=== PATIENT | male | born 1930 | race Caucasian/White ===

== ENCOUNTER → 2017-03-30 | Outpatient (CLI) | payer MEDICARE, BC ==
[~2017-03-30] VITALS: Ht 172.7 cm; Wt 77.3 kg
[~2017-03-30] MED LIST: ACET-2723 PO; ACET-2930 PO; ASPI-557 PO; CALC-135 PO; CILO50TA PO; CLOP75TA PO; CYCL5TAB PO; DONE10TA30 PO; FA/M1TAB32 PO; FEXO-118 PO; FINA5TAB42 PO; FURO-154 PO; GLIM2TAB3 PO; GLIM4TAB3 PO; HYDR-347 PO; HYDR-3713 PO; METF10002 PO; METO50TA5 PO; NITR0.4T SL; POTA20TA10 PO; REGADENOSON 0.4mg/5ml INJECTION IV ONE; SALINE FLUSH 10ml SYRINGE ONE; SIMV40TA5 PO; TAMS0.4C47 PO; [UNRECOGNIZED DRUG - OTHER] PO; elderberry PO; iron glycinate PO
--- NOTE | 2017-03-30 20:56 | ADENOSINEF ---
PHARMACOLOGICAL STRESS NUCLEAR SCAN DATE OF PROCEDURE 03/30/2017 INDICATIONS Occasional angina pectoris. Patient had a drug-eluting stent to a vein graft this past September 2016 followed by TAVR. He is being considered for back surgery. He also has diabetes mellitus and cardiovascular disease including carotid artery stenosis. NARRATIVE OF PROCEDURE The patient was unable to exercise on the treadmill due to chronic low back pain. The patient underwent rest injecting of 99mTc Myoview dose of 12.6 mCi, a Lexiscan dose of 0.4 mg followed by a 99mTc Myoview dose of 32.1 mCi. Stress and rest perfusion images were obtained per protocol. The patient had no chest pain. He had mild nausea and headache with stress. EKG showed sinus rhythm with ventricular-paced rhythm 100%. The EKG was nondiagnostic during the pharmacological stress due to paced rhythm. Blood pressure was 140/67, heart rate 61 beats per minute. Blood pressure svetlana to 156/76, heart rate svetlana to 86 beats per minute which is 63% of age-predicted maximum heart rate. Stress and rest perfusion images were reviewed. A medium-size perfusion defect was identified in the inferolateral wall and a mild area in the mid inferior wall. These appeared to redistribute on rest images suggestive of moderate and mild reversible ischemia in order. In addition, residual fixed defect in the inferior wall is consistent with either diaphragmatic attenuation artifact or a small nontransmural scar. Gated images showed normal wall motion, normal contractility, LVEF 49% on stress images and 60% on rest images. IMPRESSION 1. Pharmacological stress nuclear scan clinically negative. 2. Electrically nondiagnostic due to paced rhythm. 3. Scintigraphically suggestive of moderate reversible ischemia in the inferolateral wall and mild reversible ischemia in the inferior wall with normal LVEF, as described above. RAFAT
== END ==
LOC: IMA 08:03
PROVIDERS: ATTEND Internal Medicine Cardiovascular Disease
DX: R94.39 Abnormal result of other cardiovascular function study (principal); R26.2 Difficulty in walking, not elsewhere classified; I20.0 Unstable angina; R06.02 Shortness of breath; M54.5 Low back pain; R11.0 Nausea; R51 Headache
CPT/HCPCS: 78452; 93017; A9502; J2785

== ENCOUNTER 2017-04-05 06:57 | Outpatient (CLI) | payer MEDICARE, BC ==
[2017-04-05] VITALS (18 sets, daily range): BP systolic 132–190; BP diastolic 56–91; PULSE 62–74; RESP 11–27; TEMP 98.2; O2SAT 93–100; Ht 172.7 cm; Wt 78.1 kg
[~2017-04-05] VITALS: Ht 172.7 cm; Wt 78.1 kg
[~2017-04-05 06:57] MED LIST changes: -ACET-2723 PO; -ACET-2930 PO; -GLIM2TAB3 PO; -HYDR-347 PO; +NORMAL SALINE 1,000 ML IV SCH; -REGADENOSON 0.4mg/5ml INJECTION IV ONE; +SALINE FLUSH 10ml SYRINGE IVF PRN; -SALINE FLUSH 10ml SYRINGE ONE
--- NOTE | 2017-04-05 07:05 | NUR ---
ADMIT PT AMBULATORY TO ROOM 118. FAMILY ATTENDING.
[2017-04-05] MEDS ORDERED: GLIM2TAB3 PO (07:31)
[2017-04-05] MEDS ORDERED: HYDR-347 PO (07:35)
[2017-04-05] MEDS ORDERED: FEXO-118 PO (07:38)
[2017-04-05] MEDS ORDERED: ACET-2723 PO (07:38)
[2017-04-05] MEDS ORDERED: ACET-2930 PO (07:38)
[2017-04-05 07:41] LABS: BASOPHILS # (AUTO) 0.1 T/MM3 (0-0.2); BASOPHILS % (AUTO) 1.4 % (0-2); EOSINOPHILS # (AUTO) 0.2 T/MM3 (0-0.5); EOSINOPHILS % (AUTO) 6.6 % (0-4); HCT - HEMATOCRIT 32.2 % (41-53); HGB - HEMOGLOBIN 10.3 GM/DL (13.5-17.5); IMMATURE GRANULOCYTE # (AUTO) 0.02 T/MM3 (0.00-0.03); IMMATURE GRANULOCYTE % (AUTO) 0.6 % (0.0-0.5); LYMPHOCYTES # (AUTO) 1.3 T/MM3 (1-4.8); LYMPHOCYTES % (AUTO) 37.9 % (23-45); MEAN CORPUSCULAR HGB 27.8 UUG (26-34); MEAN CORPUSCULAR VOLUME 86.8 UM3 (80-100); MEAN PLATELET VOLUME 9.3 UM3 (9.4-12.4); MONOCYTES # (AUTO) 0.4 T/MM3 (0-0.8); MONOCYTES % (AUTO) 11.8 % (0-9.0); NEUTROPHILS #(AUTO)-ABSOLUTE 1.5 T/MM3 (1.8-7.7); NEUTROPHILS % (AUTO) 41.7 % (33-66); RED BLOOD COUNT 3.71 M/MM3 (4.50-5.90); WBC - WHITE BLOOD COUNT 3.5 T/MM3 (4.5-11.0)
[2017-04-05 07:53] LABS: ANION GAP 13 MEQ/L (5-15); BUN/CREATININE RATIO 20 RATIO (6-26); CALCIUM 9.4 MG/DL (8.4-10.2); CHLORIDE 104 MEQ/L (98-107); CO2 - CARBON DIOXIDE 27 MEQ/L (22-30); GLOMERULAR FILTRATION RATE 71; GLUCOSE 121 MG/DL (75-110); POTASSIUM 4.3 MEQ/L (3.6-5); SODIUM 144 MEQ/L (134-144)
[2017-04-05] MEDS ORDERED: LIDOCAINE 1% (10mg/ml) 30ml SDV ONE (08:43)
[2017-04-05] MEDS ORDERED: HEPARIN 1,000units in NS 500ml BAG IV ONE ×2 (08:43→10:18)
--- NOTE | 2017-04-05 09:18 | NUR ---
CATH PT TO M[employer] LOAN OFFICER ORIGINATOR PER CATH CART. FAMILY ATTENDING.
[2017-04-05] MEDS ORDERED: MIDAZOLAM 2mg/2ml INJECTION ONE (09:25)
[2017-04-05] MEDS ORDERED: DiphenhydrAMINE 50 MG/ML INJECTION ONE (09:25)
[2017-04-05] MEDS ORDERED: FENTANYL 100mcg/2ml INJECTION ONE (09:25)
--- NOTE | 2017-04-05 09:34 | NUR ---
CM CM ATTEMPTED TO VISIT PT. PT AT PROCEDURE. CONTACT CARD AT BEDSIDE WITH NAME ON BOARD. [facility] [place] NURSE AWARE TO CONTACT CM IF NEEDS ARISE.
[2017-04-05] MEDS ORDERED: BISACODYL 10 MG SUPPOSITORY RECTALLY PRN (11:00)
[2017-04-05] MEDS ORDERED: BISACODYL 5 MG E.C. TABLET PO PRN (11:00)
[2017-04-05] MEDS ORDERED: LORAZEPAM 1 MG TABLET PO PRN (11:00)
[2017-04-05] MEDS ORDERED: MAG-AL + SIM LIQUID 30 ML UDC PO PRN (11:00)
[2017-04-05] MEDS ORDERED: MILK OF MAGNESIA 30 ML SUSP PO PRN (11:00)
[2017-04-05] MEDS ORDERED: PROMETHAZINE 25 MG INJECTION IV PRN (11:00)
[2017-04-05] MEDS ORDERED: ATROPINE 1 MG/ML VIAL IV PRN (11:00)
[2017-04-05] MEDS ORDERED: MORPHINE SULFATE 4 MG SYRINGE IV PRN ×2 (11:00)
[2017-04-05] MEDS ORDERED: ACETAMINOPHEN 500 MG TABLET PO PRN (11:00)
[2017-04-05] MEDS ORDERED: HYDROCODONE/APAP 5 mg/325 mg TABLET PO PRN (11:00)
[2017-04-05] MEDS ORDERED: ONDANSETRON 4mg/2ml INJECTION IV PRN (11:00)
[2017-04-05] MEDS ORDERED: NITROGLYCERIN 0.4 MG SUBLINGUAL TABLET SL PRN ×2 (11:00)
[2017-04-05] MEDS ORDERED: ACETAMINOPHEN 325 MG TABLET PO PRN (11:00)
[2017-04-05] MEDS ORDERED: METOCLOPRAMIDE 10mg/2ml INJECTION IV PRN (11:00)
[2017-04-05] MEDS ORDERED: LORAZEPAM 2 MG/ML INJECTION IV PRN (11:00)
--- NOTE | 2017-04-05 11:20 | NUR ---
RETURN PT RETURNED TO ROOM 118 PER CATH CART. TRANSFERRED TO .. BED WITH ASSIST OF 3 USING SLIDE BOARD. LEFT GROIN SITE HAS VENOUS PUNCTURE THAT IS COVERED WITH D&I DRESSING. RT GROIN SITE (MANUAL PRESSURE HELD) COVERED WITH D&I DRESSING. TISSUE SOFT TO PALPATION WITH NO S/SX OF BLEEDING. PEDAL PULSES PALPABLE BI-LAT.
[2017-04-05] MEDS: NORMAL SALINE 1,000 ML IV SCH ×2 (14:59→15:32)
--- NOTE | 2017-04-05 15:10 | HPF ---
DATE OF SERVICE (OFFICE VISIT) 03/25/2017 DATE OF PROCEDURES 04/05/2017 CARDIAC CATHETERIZATION Next week, date yet to be determined. HISTORY OF PRESENT ILLNESS Mr. Flores is a very pleasant 87-year-old male well-known to me with complex past cardiovascular history as noted below. He presents for office visit to make sure he is ready for his anticipated spinal stenosis surgery set up for about June 15. He has extensive coronary artery disease history and he recently took a long bus trip and on two occasions he experienced left-sided chest pressure and shortness of breath. It lasted for less than a minute and on one occasion it happened after handling luggage. He does not remember the specifics about the second episode. He denies any pleuritic type chest pain. He denies leg swelling, orthopnea or PND. He did get off his seat every 2 to 2-1/2 hours to walk. He has no other complaints after that time. He is looking forward to finally having his back surgery due to debilitating low back pain. 10-SYSTEM REVIEW OF SYSTEMS Recent weight gain of five pounds. Denies fever, chills, or night sweats. Denies abdominal pain, hematochezia, melena. Denies nausea or vomiting. No dysuria or hematuria. No urinary frequency. Positive for shortness of breath and in History of Present Illness above and no wheezing or phlegm production. Positive for chronic and worsening low back pain, appears to be mechanical and worse with activity such as walking. Negative for stroke-type symptoms. No neurological deficits. No speech difficulty, visual problems, diplopia, arm or leg weakness, numbness, tingling, trouble walking or gait difficulty. Negative for dizziness, vertigo, syncope, seizure, or headaches. He has known bilateral carotid artery stenoses (see reports below). He denies bleeding problems. He has some easy bruising. He remains on Plavix and aspirin after a previous coronary artery stent. He is diabetic and blood sugars have been fluctuating. He has non-Hodgkin's lymphoma in remission, on maintenance chemotherapy intermittently by Dr. Negro. He also describes improved energy over the past 5-6 months following his cardiac procedures. PAST MEDICAL/SURGICAL HISTORY 1. Coronary artery disease with remote CABG in 2001. Catheterization September 30, 2016. Extensive coronary artery disease but patent PARKINSON to LAD, high grade lesion within the vein graft to the RCA. No bypass to the left circumflex artery, 75% stenosis in the obtuse marginal branch and subsequently received a bare metal stent to the first obtuse marginal branch and vein graft to the RCA, October 07, 2016 2. Drug-eluting stent to SVG to RCA September 2016, Dr. Sourav Ortega. 3. TAVR in October 2016, Dr. Morales. 4. Peripheral arterial disease with known severe bilateral iliac artery stenosis. 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 Morales. 5. Carotid artery stenosis. 6. Permanent pacemaker implant, October 2016 for immediate post TAVR complete heart block. 7. Non-Hodgkin's lymphoma. 8. Hypertension. 9. Dyslipidemia. 10. Diabetes mellitus type 2. HOME MEDICATIONS List was reviewed in EMR in detail. ALLERGIES IODINE, unknown reaction. NIACIN. CEPHALOSPORIN . PENICILLIN. FAMILY HISTORY Positive for heart disease in his brother. SOCIAL HISTORY Denies alcohol. He is a former smoker. 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 He is a . PHYSICAL EXAMINATION GENERAL: Alert and oriented x3, most pleasant gentleman, elderly. Looks age-appropriate. Does not look in any acute cardiorespiratory distress. VITALS: Blood pressure 130/72. Pulse rate 65 beats per minute. Respirations 16 and unlabored. Weight is 175 pounds. HEAD: Atraumatic, normocephalic. NECK: Jugular venous pressure is not elevated. Carotid upstrokes are equal. Soft left-sided bruit is present. CHEST: Clear to auscultation bilaterally. HEART: Regular rate and rhythm with a Grade I/ systolic ejection murmur. No aortic regurgitation murmur is present. Normal S1 and S2. Pacemaker scar is well healed and normal. It is right-sided. Left-sided scar appears normal. It is related to subclavian artery surgical cut-down for TAVR procedure. ABDOMEN: Soft, nontender, nondistended. Normoactive bowel sounds are present. No organomegaly or masses. EXTREMITIES: Peripheral pulses are decreased but symmetrical. Toes are pink and warm. SKIN: Warm, pink and dry. NEUROLOGIC: Without any focal sensory or motor deficit appreciated. DIAGNOSTIC DATA EKG obtained today shows sinus rhythm. No acute changes of ischemia. Echocardiogram from October 2016 showed critical aortic valve stenosis, 0.6 cm2 with a mean gradient of 54 mmHg (pre-TAVR). Moderate LVH with normal ejection fraction of 70%. Post-TAVR echo November 13, 2016, Dr. Morales, bioprosthetic valve well-functioning and seated well with trace perivalvular leak, mean gradient of 11 mmHg. Valve area of 1.9 cm2. Last carotid Doppler in the office 2013 and followup recent carotid Doppler suggested 50-69% in right ICA in multiple locations. The left internal carotid artery exhibits about 50% stenosis. IMPRESSION 1. Exertional chest pressure associated with shortness of breath consistent with new onset angina pectoris. 2. Coronary artery disease with remote CABG and drug-eluting stent to SVG to RCA (angiogram and stent at [facility] September 2016. 3. Progressive carotid artery stenosis, worse on the right, asymptomatic. 4. Status post TAVR in October 2016. 5. Preop cardiovascular clearance for back surgery for spinal stenosis scheduled for late May 2017. 6. Non-Hodgkin's lymphoma, in remission. 7. Diabetes mellitus type 2. 8. Hypertension. 9. Dyslipidemia. DISCUSSION AND PLAN 1. Will proceed with pharmacological stress nuclear scan to look for reversible ischemia due to patient's exertional chest pain and coronary artery disease and stenting. 2. Discussed at length with the patient and the family the indication, alternatives, risks and benefits of invasive carotid arteriogram versus noninvasive imaging and patient clearly wanted the "gold standard" assessment of his carotid artery stenosis. He understood the risk of bleed, vascular damage and at least a 1% risk of stroke and is willing to proceed. ADDENDUM DATE OF SERVICE 04/05/2017 Patient presented for invasive carotid angiogram. His stress nuclear scan results were also reviewed with him He had reversible ischemia in the inferior wall distribution with normal ejection fraction, please see full nuclear scan report. I counseled him on the indications, alternatives, risks and benefits of heart catheterization and he is willing to proceed. Will schedule coronary angiogram next week, allowing a one week interval after his carotid angiogram today for dye excretion. RAFAT
--- NOTE | 2017-04-05 18:40 | NUR ---
DISMISSAL DISCHARGE INSTRUCTIONS, MEDICATION, AND HEART CATHETERIZATION EDUCATION GIVEN AND DISCUSSED WITH PATIENT AND PATIENT'S DAUGHTER. DISCUSSED CARE AT PUNCTURE. DISCUSSED S/S OF INFECTION. ALL QUESTIONS AND CONCERNS ANSWERED AT THIS TIME. IVL D/C, CATHETER TIP INTACT. PATIENT INFORMED OF FOLLOW UP APPOINTMENTS WITH DR. CLEMENT. AMBULATES TO ER ENTRANCE WITH [facility] [place] STAFF. DISMISSED WITH DAUGHTER PER PRIVATE OWN VEHICLE.
[2017-04-05] MEDS ORDERED: DONEPEZIL 10 MG TABLET PO SCH (22:00)
[2017-04-05] MEDS ORDERED: TAMSULOSIN 0.4 MG CAPSULE PO SCH (22:00)
[2017-04-05] MEDS ORDERED: FINASTERIDE 5 MG TABLET PO SCH (22:00)
[2017-04-05] MEDS ORDERED: SIMVASTATIN 40 MG TABLET PO SCH (22:00)
[2017-04-06] MEDS ORDERED: GLIMEPIRIDE 2 MG TABLET PO SCH (08:00)
[2017-04-06] MEDS ORDERED: DIPHENHYDRAMINE PO SCH (09:00)
[2017-04-06] MEDS ORDERED: ASPIRIN *EC* 81mg TABLET PO SCH (09:00)
[2017-04-06] MEDS ORDERED: GLIMEPIRIDE 4 MG TABLET PO SCH (09:00)
[2017-04-06] MEDS ORDERED: FEXOFENADINE 180 MG TABLET PO SCH (09:00)
[2017-04-06] MEDS ORDERED: ACETAMINOPHEN PO SCH (09:00)
[2017-04-06] MEDS ORDERED: CLOPIDOGREL 75 MG TABLET PO SCH (09:00)
--- NOTE | 2017-04-06 13:40 | CVPROF ---
DATE 04/05/2017 PROCEDURE PERFORMED Transfemoral aortic arch injection. Selective bilateral common carotid arteriogram. Innominate arteriogram. Left subclavian arteriogram. INDICATIONS/INFORMED CONSENT Complex elderly active gentleman with complex cardiovascular disease and diabetes. His recent carotid Doppler showed progressive moderate stenosis, asymptomatic. History of vertebral artery occlusion. Patient is also anticipating a spinal surgery in May. He was counseled on the indications, alternatives, risks and benefits of the procedure and he agreed to proceed. NARRATIVE OF PROCEDURE The patient was brought to the cardiac cath laboratory, received IV pre- medication due to contrast allergy including Solu-Medrol and Benadryl. No additional sedation was given. Both groins were prepped and draped in the usual sterile fashion. There was known significant stenosis in the femoral arteries. The pulse on the right side stronger. I injected about 15 cc total 1% lidocaine in the right groin. Subsequently injected the left groin with about 7-10 cc. Through a calcified femoral artery, I was able to cannulate it on the right side and both J-wire and Versacore wire would not advance. I ended up abandoning the site, and going on the opposite side where the pulse was weaker and artery was calcified. I hit the left femoral vein but not the artery. I attempted under directed fluoroscopy to follow the calcium trail of the femoral artery. I went back to the right side, this time with a micropuncture kit. The small wire advanced, allowing me to put a small sheath in and then gradually dilate and a 6-Fijian slender sheath advanced over a Versacore wire. Then we went with the pigtail catheter and then exchanged for a JR4 catheter, performed the above selective angiograms as described above. Procedure was well tolerated. There were no immediate complications. FINDINGS Aortic root injection showed a classical three great vessel anatomy without aneurysm or dissection. The proximal great vessels were patent without any evidence of stenosis. The right common carotid arteriogram showed a bulging in the proximal portion of the internal carotid artery consistent with a fusiform small aneurysmal dilatation where the vessel caliber is about doubled. The stenosis following that is estimated about 50%. The external carotid artery is widely patent. The innominate arteriogram showed a patent innominate and then subclavian artery and relatively medium caliber right vertebral artery that is free from any occlusive disease. No significant stenosis is present in the right subclavian artery and the right KATIUSKA (internal mammary artery). Left subclavian artery exhibits mild plaquing nonocclusive, about 20%. Patent proximal PARKINSON. Vertebral artery is totally occluded proximally. There are some mild to moderate collateral circulation in that area and a prominent thyrocervical artery. Left common carotid arteriogram shows a smooth common carotid artery, widely patent bulb and external carotid artery. The left internal carotid artery exhibits a mild stenosis. It is estimated about 40% with the appearance suggestive of fibromuscular dysplasia (FMD). No occlusive plaque is present in the cervical carotids. It should be noted that no additional sedation was given in order to monitor the neurological status for the patient during his carotid arteriogram. He did receive Benadryl as part of premedication for contrast allergy. I elected not to give him IV heparin due to risk from vascular access sites outweighing the benefit. All arteriograms were performed under digital subtracted angiogram ( DSA). IMPRESSION 1. Aortic arch injection shows nor dissection or aneurysm, classical three great vessel anatomy without any proximal occlusive disease. 2. Bilateral internal carotid artery stenosis, about 50% in the proximal right following an aneurysmal dilatation, 40% on the left. 3. Mild plaquing in bilateral subclavian arteries and innominate, nothing occlusive. 4. Patent medium caliber right vertebral artery and a totally occluded left vertebral artery. DISCUSSION AND RECOMMENDATION No severe disease is present. Patient warrants continued risk factor modification and I will plan on doing a surveillance carotid Doppler at some point such as 18 months. [facility]
== END 2017-04-05 18:40 | disposition home or self-care (01) ==
LOC: CATH 06:57 → SRG 06:58 → CATH 18:40
PROVIDERS: ATTEND Internal Medicine Cardiovascular Disease
DX: I65.23 Occlusion and stenosis of bilateral carotid arteries (principal); I65.02 Occlusion and stenosis of left vertebral artery; I70.8 Atherosclerosis of other arteries; E11.9 Type 2 diabetes mellitus without complications; E78.5 Hyperlipidemia, unspecified; I10 Essential (primary) hypertension; Z79.02 Long term (current) use of antithrombotics/antiplatelets; Z79.899 Other long term (current) drug therapy; Z95.5 Presence of coronary angioplasty implant and graft; Z95.0 Presence of cardiac pacemaker; C85.90 Non-Hodgkin lymphoma, unspecified, unspecified site; I25.110 Atherosclerotic heart disease of native coronary artery with unstable angina pectoris; Z95.1 Presence of aortocoronary bypass graft; Z82.49 Family history of ischemic heart disease and other diseases of the circulatory system; Z87.891 Personal history of nicotine dependence; R07.89 Other chest pain; R06.02 Shortness of breath; M48.06 Spinal stenosis, lumbar region
CPT/HCPCS: 36215; 36222; 36415; 80048; 85025; 93005; A9270; C1769; C1887; C1893; J1200; J1644; J2250; J2930; J3010; J7030; Q9967

== ENCOUNTER 2018-04-29 10:39 | Inpatient (IN) ==
--- NOTE | 2018-04-29 14:24 | IRU History & Physical Report ---
[facility] IRU Date: Date: 04/29/18 Time: 1420 HPI: Patient underwent lumbar fusion at L4-5. 3 days ago. He had severe leg pain with walking and was noted to have severe lumbar canal stenosis and spondylolisthesis. He has had a prior lumbar decompression. Since surgery, he is ambulating with a walker and says his leg pain is better. He is currently wearing a lumbar support. Surgeon recommended. [facility] Patient Stated Medical History Cerebrovascular Accident No Paralysis No Seizures No Syncope No Cataracts Yes Hearing Loss Yes Other HEENT Yes: GLASSES Angina No Cardiac Arrhythmia No Congestive Heart Failure Yes Coronary Artery Disease Yes Heart Murmur No Hypertension Yes Hypotension No Myocardial Infarction No Rheumatic Fever No Valvular Heart Disease No Other Cardiology No Asthma No Bronchitis Yes Chronic Obstructive Pulmonary No Disease (COPD) Pneumonia Yes: with sepsis Pulmonary Edema No Pulmonary Embolism No Sleep Apnea No Tuberculosis No Other Respiratory No Diabetes Mellitus Type 1 No Diabetes Mellitus Type 2 Yes Cirrhosis No Gastrointestinal Bleeding No Hepatitis No Hiatal Hernia No Obstructive Bowel No Ulcer No Other GI No Hx Benign Prostatic Yes Hyperplasia Hx Kidney Stones Yes Hx Urinary Tract Infection Yes Clotting Problems Yes: on plavix Other Hematologic Yes: non hodgkins lymphoma Osteoarthritis Yes Other Musculoskeletal No Sepsis Yes Anesthesia Reactions No Chemotherapy No Malignant Hyperthermia No Other No Depression No Now No Clinic Medical History (Last Reviewed 03/24/18 @ 15:51 by Juan Jose Kirk MD) High cholesterol (Chronic Medical) On Zocor. Diabetes mellitus type 2, uncontrolled, without complications (Chronic Medical ~ 2001) Good control by A1c. CKD (chronic kidney disease) stage 3, GFR 30-59 ml/min (Chronic Medical) Mild CAD (coronary artery disease) (Chronic Medical) Stable. History of duodenal ulcer (Acute Medical) Non Hodgkin's lymphoma (Acute Medical) Surgical History: Kidney Stone 2018. stent and April 21. CABG 1999. Port a cath. Colonoscopy normal 2007. Pacemaker. Appendectomy 1951. Cholecystectomy 1967 Family History: Family History (Last Reviewed 03/24/18 @ 15:51 by Juan Jose Kirk MD) Mother No known health problems Father No known health problems Brother Stroke - Social History Smoking status: Former smoker second hand exposure: No Substance use type: does not use Alcohol intake frequency: does not drink Current occupational status: retired Does patient use chewing tobacco?: No Review of Systems Comprehensive ROS: completed and no additional positive findings except those as stated - Neurological Neurological Comments: Numbness in his heels when he is in bed Medications Home Medications Medication Instructions Recorded Confirmed Type Nitroglycerin [Nitrostat] 0.4 mg SL Q5M PRN #0 12/01/15 03/27/18 History Calcium Citrate/Vitamin D2 1 tab PO BID #0 11/30/16 03/27/18 History [Calcium with Vit D Tablet] APAP/Diphenhydramine 500/25 2 tab PO HS 06/05/17 03/27/18 History [Tylenol Pm] Hydrocodone/APAP 7.5/325 [[place] 1 tab PO Q4-6HR PRN 06/05/17 03/27/18 History 7.5/325] Simvastatin [Zocor] 40 mg PO HS 06/05/17 03/27/18 History Acetaminophen [Tylenol] 1,000 mg PO Q4-6HPRN PRN 12/13/17 03/27/18 History Aspirin Chewable [ASA] 81 mg PO HS 12/13/17 03/27/18 History Cyclobenzaprine [Flexeril] 10 mg PO HS 12/13/17 03/27/18 History Donepezil [Aricept 10 mg] 10 mg PO HS 12/13/17 03/27/18 History Melatonin 9 mg PO HS 12/13/17 03/27/18 History Metoprolol Tartrate 50 mg PO WB 12/13/17 03/27/18 History cycloSPORINE [Restasis Multidose] 2 drop EACH EYE BID 12/13/17 03/27/18 History Multivit-Min/Folic/Vit K/Lycop 1 tab PO DAILY 12/25/17 03/27/18 History [Men's 50 Plus Daily Formula Tb] fexofenadine 180 mg tablet 60 mg PO DAILY tab 01/20/18 03/27/18 History Glimepiride [Amaryl] 4 mg PO TID 03/07/18 03/27/18 History Sucralfate [Carafate] 1 gm PO AC30HS 30 Days #120 tab 03/07/18 03/27/18 Rx Iron 28 mg PO DAILY 03/27/18 03/27/18 History Glucophage (metformin) 1,000 mg 1,000 mg PO BIDWM #180 tab 04/12/18 Rx tablet Benzocaine/Menthol Lozenge 1 each PO PRN PRN 04/29/18 04/29/18 History [CEPACOL SORE THROAT Lozenge] Bisacodyl EC TAB [Dulcolax] 5 - 10 mg PO DAILY PRN 04/29/18 04/29/18 History Bisacodyl Supp [Dulcolax] 10 mg RECTALLY DAILY PRN 04/29/18 04/29/18 History Docusate Sodium [Colace] 1 cap PO BID 04/29/18 04/29/18 History Famotidine [Pepcid] 1 tab PO BID PRN 04/29/18 04/29/18 History Lidocaine 5% Patch [Lidoderm] 1 each TD DAILY 04/29/18 04/29/18 History Lidocaine Patch Removal [Lidoderm 1 removal TP DAILY 04/29/18 04/29/18 History Patch Removal] Milk of Magnesia [Mom] 30 ml PO DAILY PRN 04/29/18 04/29/18 History Omeprazole 1 cap PO DAILY 04/29/18 04/29/18 History PEG 3350 17gm PACKET [Miralax] 1 packet PO DAILY 04/29/18 04/29/18 History Phenol/Glycerin [Chloraseptic Max 1 spray PO PRN PRN 04/29/18 04/29/18 History [place]] Allergies Allergy/AdvReac Type Severity Reaction Status Date / Time cefaclor Allergy Intermediate HIVES Verified 03/27/18 22:18 Iodinated Contrast- Oral and Allergy Intermediate HIVES Verified 03/27/18 22:18 IV Dye Penicillins Allergy Intermediate SHORTNESS Verified 03/27/18 22:18 OF BREATH nateglinide Allergy Unknown RASH Verified 03/27/18 22:20 acyclovir AdvReac Mild rash Verified 03/27/18 22:20 niacin AdvReac Mild HOT FLASHES Verified 03/27/18 22:18 Exam Vital Signs: Temperature 98.0 F 04/29/18 13:36 Pulse Rate 75 04/29/18 13:36 Respiratory Rate 16 04/29/18 13:36 Blood Pressure 152/68 H 04/29/18 13:36 Pulse Oximetry 95 04/29/18 13:36 Height/Weight/BMI: Weight 82.8 kg - Constitutional Present: no acute distress - Routine HEENT Exam Head: Present: normocephalic - Routine Cardiovascular Exam Present: RRR - Routine Abdominal Exam Present: soft - Routine Back/Spine/Pelvis Exam Comments: in back brace decreased ROM IRU A/P Resuscitation Status: Do Not Resuscitate - Course Hospital Course: Kennedy Sesay MD: - Interventions to Obtain Goals PT Treatment Plan: Balance/Proprioception, Gait Training OT Treatment Plan: Balance Training
--- NOTE | 2018-04-29 14:33 | IRU 24Hr Post Admit Eval ---
24 Hr Post Admission Physical - Relevant Changes Reviewed: I have reviewed the patient's information and concur with the finding and results of the pre-admission screen. Certification: I certify the patient for rehabilitation. - Prior Functional Status Lives With: Spouse Residence Type: Apartment/Private Home Assitive Devices: Front Wheeled Walker Prior Functional Status: Indep. at home or school - Current Functional Status Current Level of Function: recovering from surgery Failed Alternative Therapy: Arrived from Acute Care Patient Requirements: The patient requires oversight by rehabilitation physician to manage their rehabilitation treatment plan and multidisciplinary approach to care that can only be provided in an IRF and requires a multidisciplinary approach to care, provided by professional PTs, OTs, STs, dieticians, RTs, rehabilitation nurses and is not available in lesser levels of care. Limitations Req: Mobility Impairment, ADL Impairment Physical Therapy Minutes: 90 Occupational Therapy Minutes: 90 Therapy: The patient is to receive therapy at least 5 days a week. - Complications/Comorbidities Barriers to Discharge: Weakness, Balance, Endurance, Pain Control - Plan to Avoid Complications Plan to Avoid Complications: The patient cannot receive this care in a lesser intensive setting such as [facility] or Outpatient Therapy due to the patient requiring the following .
[2018-04-29] MEDS ORDERED: BISACODYL 10 MG SUPPOSITORY RECTALLY PRN (14:35)
[2018-04-29] MEDS ORDERED: BENZOCAINE/MENTHOL SORE THROAT LOZENGE PO PRN (14:35)
[2018-04-29] MEDS ORDERED: NITROGLYCERIN 0.4 MG SUBLINGUAL TABLET SL PRN (14:35)
[2018-04-29] MEDS ORDERED: FAMOTIDINE 20 MG TABLET PO PRN (14:35)
[2018-04-29] MEDS ORDERED: CYCLOBENZAPRINE 10 MG TABLET PO PRN (14:35)
[2018-04-29] MEDS ORDERED: SORE THROAT SPRAY 20ml PO PRN (14:35)
[2018-04-29] MEDS ORDERED: ACETAMINOPHEN 500 MG TABLET PO PRN (14:35)
[2018-04-29] MEDS ORDERED: GLIMEPIRIDE 4 MG TABLET PO SCH (15:00)
[2018-04-29 15:09] VITALS: BMI 28.5
--- NOTE | 2018-04-29 16:10 | Consult Note ---
Consult Information - Data of Consult Consult date: 04/29/18 Requesting Physician: Neo Vitale MD Primary Care Provider: Easton Rice MD - Consult Narrative Reason for consult: medical management History of present illness: Mr. Flores is an 88-year-old male who resides at independent living at [facility]. He has a history of spinal stenosis and degenerative disc disease and left leg weakness that had limited his activity level and quality of life. He underwent L4-L5 transforaminal lumbar interbody fusion, total facetectomy, posterior lateral fusion and bone autograft and placement of bilateral pedicle screws at L4-L5 for spondylolisthesis by Dr. Montero. Since surgery, he has been doing well and has had no concerns other than constipation. He has not had a bowel movement for about 3 days despite being on MiraLAX and a stool softener. He was medically stable for discharge from [facility] on 04/29/18 and was transferred to IRU for further strengthening and to improve functional mobility before discharge back home. Of note, labs during recent hospitalization showed a low normal sodium level at 136, an elevated potassium at 5.4, normal renal function with a creatinine of 1.0. His blood sugars ranged from 150-302. Past Medical History Medical History: Medical History (Last Updated 04/29/18 @ 16:22 by Stefanie Schofield, CHELSEA) High cholesterol (Chronic) On Zocor. Diabetes mellitus type 2, uncontrolled, without complications (Chronic) Onset Date: ~2001 Good control by A1c. CKD (chronic kidney disease) stage 3, GFR 30-59 ml/min (Chronic) Mild CAD (coronary artery disease) (Chronic) Stable. BPH (benign prostatic hyperplasia) Dementia History of duodenal ulcer Non Hodgkin's lymphoma Medical History Updates: Carotid artery stenosis. Peripheral arterial disease with known severe bilateral iliac artery stenosis. 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 History of mantle cell lymphoma treated with Rituxan Surgical History: L4-L5 transforaminal lumbar interbody fusion, total facetectomy, posterior lateral fusion and bone autograft and placement of bilateral pedicle screws at L4-L5 for spondylolisthesis 04/26/[address] Montero. TAVR, October 2016, Dr. Villa. 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 stent 12/16 and April 21. CABG 2001. Heart catheterization September 2016 revealing extensive coronary disease but patent ellsworth to LAD, high-grade lesion to graft to RCA, 75% stenosis in obtuse marginal branch with stents placed to first obtuse marginal branch and RCA vein graft later in September 2016. TURP + cystolitholapaxy 2018. Kidney stones. Port a cath. Colonoscopy normal 2007. Pacemaker. Appendectomy 1951. Cholecystectomy 1967. Prior lumbar decompression with laminectomy. Prostate biopsy 3. Sinus surgery for deviated septum Family History: Family History (Last Reviewed 03/24/18 @ 15:51 by Juan Jose Kirk MD) Mother No known health problems Father No known health problems Brother Stroke Family History Updates: Positive for CAD and stroke. Family History: As Above - Social History Smoking status: Former smoker Substance use type: does not use Alcohol intake frequency: does not drink Household members: other () Current residence: [facility] Living Review of Systems All systems PM: 10-point ROS was reviewed, no additional remarkable complaints except - Constitutional Constitutional: Absent: chills, fever(s) - EENMT Eyes: Absent: change in vision Nose: Absent: obstruction Mouth/Throat: Absent: sore throat, changes in swallowing - Cardiovascular Cardiovascular: Absent: chest pain, syncope Vascular: Absent: pedal edema - Respiratory Respiratory: Absent: cough, dyspnea - Gastrointestinal Gastrointestinal: Present: constipation. Absent: abdominal pain, diarrhea, nausea, vomiting - Genitourinary Genitourinary: Absent: dysuria, urinary incontinence - Musculoskeletal Musculoskeletal: Present: back pain, muscle weakness (left leg) - Integumentary/Breasts Integumentary: Present: wounds (surgical) - Neurological Neurological: Present: abnormal gait, weakness. Absent: numbness, paresthesias - Psychiatric Psychiatric: Absent: anxiety, depression - Endocrine Endocrine: Absent: palpitations - Hematologic/Lymphatic Hematologic/Lymphatic: Present: easy bleeding, easy bruising. Absent: lymphadenopathy - Allergic/Immunologic Allergic/Immunologic: Absent: seasonal rhinorrhea Medications Home Medications Medication Instructions Recorded Confirmed Type Nitroglycerin [Nitrostat] 0.4 mg SL Q5M PRN #0 12/01/15 04/29/18 History Calcium Citrate/Vitamin D2 1 tab PO BID #0 11/30/16 04/29/18 History [Calcium with Vit D Tablet] APAP/Diphenhydramine 500/25 1 - 2 tab PO HS PRN 06/05/17 04/29/18 History [Tylenol Pm] Hydrocodone/APAP 7.5/325 [[place] 1 - 2 tab PO Q4HR PRN 06/05/17 04/29/18 History 7.5/325] Simvastatin [Zocor] 40 mg PO HS 06/05/17 04/29/18 History Acetaminophen [Tylenol] 1,000 mg PO Q4HPRN PRN 12/13/17 04/29/18 History Aspirin Chewable [ASA] 81 mg PO HS 12/13/17 04/29/18 History Cyclobenzaprine [Flexeril] 5 mg PO Q8H PRN 12/13/17 04/29/18 History Donepezil [Aricept 10 mg] 10 mg PO HS 12/13/17 04/29/18 History Melatonin 1 tab PO HS PRN 12/13/17 04/29/18 History Metoprolol Tartrate 50 mg PO WB 12/13/17 04/29/18 History cycloSPORINE [Restasis Multidose] 2 drop EACH EYE BID 12/13/17 04/29/18 History Multivit-Min/Folic/Vit K/Lycop 1 tab PO DAILY 12/25/17 04/29/18 History [Men's 50 Plus Daily Formula Tb] fexofenadine 180 mg tablet 60 mg PO DAILY tab 01/20/18 04/29/18 History Glimepiride [Amaryl] 2 mg PO TID 03/07/18 04/29/18 History Sucralfate [Carafate] 1 gm PO AC30HS 30 Days #120 tab 03/07/18 04/29/18 Rx Iron 28 mg PO DAILY 03/27/18 04/29/18 History Glucophage (metformin) 1,000 mg 1,000 mg PO BIDWM #180 tab 04/12/18 04/29/18 Rx tablet Benzocaine/Menthol Lozenge 1 each PO PRN PRN 04/29/18 04/29/18 History [CEPACOL SORE THROAT Lozenge] Bisacodyl EC TAB [Dulcolax] 5 - 10 mg PO DAILY PRN 04/29/18 04/29/18 History Bisacodyl Supp [Dulcolax] 10 mg RECTALLY DAILY PRN 04/29/18 04/29/18 History Docusate Sodium [Colace] 1 cap PO BID 04/29/18 04/29/18 History Famotidine [Pepcid] 1 tab PO BID PRN 04/29/18 04/29/18 History Lidocaine 5% Patch [Lidoderm] 1 each TD DAILY 04/29/18 04/29/18 History Lidocaine Patch Removal [Lidoderm 1 removal TP DAILY 04/29/18 04/29/18 History Patch Removal] Milk of Magnesia [Mom] 30 ml PO DAILY PRN 04/29/18 04/29/18 History Omeprazole 1 cap PO DAILY 04/29/18 04/29/18 History PEG 3350 17gm PACKET [Miralax] 1 packet PO DAILY 04/29/18 04/29/18 History Phenol/Glycerin [Chloraseptic Max 1 spray PO PRN PRN 04/29/18 04/29/18 History [place]] Allergies Allergy/AdvReac Type Severity Reaction Status Date / Time cefaclor Allergy Intermediate HIVES Verified 03/27/18 22:18 Iodinated Contrast- Oral and Allergy Intermediate HIVES Verified 03/27/18 22:18 IV Dye Penicillins Allergy Intermediate SHORTNESS Verified 03/27/18 22:18 OF BREATH nateglinide Allergy Unknown RASH Verified 03/27/18 22:20 acyclovir AdvReac Mild rash Verified 03/27/18 22:20 niacin AdvReac Mild HOT FLASHES Verified 03/27/18 22:18 Exam Vital Signs: Temperature 98.0 F 04/29/18 13:36 Pulse Rate 75 04/29/18 13:36 Respiratory Rate 16 04/29/18 13:36 Blood Pressure 152/68 H 04/29/18 13:36 Pulse Oximetry 95 04/29/18 13:36 Height/Weight/BMI: Height 1.7 m Weight 82.8 kg Body Mass Index 28.5 - Constitutional Present: no acute distress, well nourished, well developed, thin - Routine HEENT Exam Head: Present: normocephalic Eye: Present: PERRL. Absent: conjunctival icterus, scleral injection ENT: Present: mucous membranes moist - Routine Neck Exam Present: supple. Absent: lymphadenopathy - Routine Respiratory Exam Present: CTA bilaterally - Routine Cardiovascular Exam Present: RRR, S1, S2, murmur (5/6 holosystolic murmur) - Routine Abdominal Exam Present: soft, normoactive bowel sounds, non distended, non tender - Routine Extremities Exam Present: no edema, pulses intact - Routine Back/Spine/Pelvis Exam Comments: Lumbosacral back brace in place - Routine Skin Exam Present: intact, dry, warm - Routine Neurological Exam Present: alert, oriented X3, CN II-XII intact, moving all extremities, normal speech. Absent: facial asymmetry - Routine Psychiatric Exam Present: normal affect, normal thought process, cooperative Assessment and Plan Assessment and Plan: Assessment Status post L4-L5 fusion on 04/26/18 Hyperkalemia, at [facility] Constipation Coronary artery disease. Peripheral artery disease and carotid artery stenosis. History of non-Hodgkin's lymphoma, and mantle cell lymphoma. Hypertension Dyslipidemia. Type 2 diabetes. Stage III chronic kidney disease. BPH Dementia Plan PT and OT orders as well as pain medication per attending. With history of dementia, be cautious with use of narcotics. Recheck chemistry panel tomorrow morning with recent history of hyperkalemia. Would recommend checking CBC due to recent surgery and history of non-Hodgkin's lymphoma. Monitor blood sugars, sliding scale insulin available. Continue metformin and glimepiride. Continue medications for coronary artery disease, hypertension, dyslipidemia, history of GERD and PUD. Continue with bowel regimen. CODE STATUS: DO NOT RESUSCITATE. Thank you for this consultation. We'll follow Mr. Flores during his stay while on IRU. Outside records reviewed in detail. GI Prophylaxis: Omeprazole Resuscitation Status: Do Not Resuscitate - Physician Narrative Physician: Olena Nixon MD Narrative: Date: 04/29/18 Time: 2029 I have independently evaluated and examined this patient. I reviewed the chart, the patient's history, and the FITTING ROOM CHECKER/PA's documented findings as above. We discussed and formulated the assessment and plan as above with additions as below: Mr. Flores was seen earlier this evening at which time he described having a hoarse voice today (not a problem the first 2 days postoperatively) and constipation. The pain he experienced in his right leg and difficulty with the leg giving away when he tried to ambulate preoperatively is much improved and he reports that he was able to walk with therapy today with much less difficulty than he is accustomed to. NAD, raspy voice Respirations nonlabored, regular cardiac rhythm, S1-S2 Sensation intact bilateral lower extremities Colace converted to Senokot S2 tablets twice a day due to postoperative constipation, continue MiraLAX. Will hold iron replacement therapy until bowels recover. Hospital Course Summary Disclaimer: The visit summary below is not to be considered part of the above Progress Note. Hospital Course: 04/29/18 PT and OT orders as well as pain medication per attending. With history of dementia, be cautious with use of narcotics. Recheck chemistry panel tomorrow morning with recent history of hyperkalemia. Would recommend checking CBC due to recent surgery and history of non-Hodgkin's lymphoma. Monitor blood sugars, sliding scale insulin available. Continue metformin and glimepiride. Continue medications for coronary artery disease, hypertension, dyslipidemia, history of GERD and PUD. Continue with bowel regimen. CODE STATUS: DO NOT RESUSCITATE.
[2018-04-29] MEDS: SUCRALFATE 1 GM TABLET PO SCH ×2 (17:38→20:23)
[2018-04-29] MEDS: METFORMIN 1,000 MG TABLET PO SCH (17:38)
[2018-04-29] MEDS: GLIMEPIRIDE 2 MG TABLET PO SCH (17:42)
[2018-04-29] MEDS: CycloSPORINE 0.05% EYE DROPS 4ml EACH EYE SCH (20:20)
[2018-04-29] MEDS: CALCIUM 500 + VIT D 200 TABLET PO SCH (20:20)
[2018-04-29] MEDS: ASPIRIN 81 MG CHEWABLE TABLET PO SCH (20:20)
[2018-04-29] MEDS: Bisacodyl EC TAB 5 MG TABLET PO PRN (20:21)
[2018-04-29] MEDS: MELATONIN 1 MG TABLET PO PRN (20:22)
[2018-04-29] MEDS: DONEPEZIL 10 MG TABLET PO SCH (20:22)
[2018-04-29] MEDS: SIMVASTATIN 40 MG TABLET PO SCH (20:22)
[2018-04-29] MEDS ORDERED: DOCUSATE SODIUM 100 MG CAPSULE PO SCH (21:00)
[2018-04-29] MEDS: HYDROCODONE/APAP 7.5 MG/325 MG TABLET PO PRN (22:12)
[2018-04-29] MEDS: SENNA + DOCUSATE TABLET PO SCH (22:12)
[2018-04-29] MEDS: INSULIN ASPART 100unit/ml INJECTION SQ PRN (22:13)
[2018-04-30] MEDS: HYDROCODONE/APAP 7.5 MG/325 MG TABLET PO PRN ×3 (01:51→11:17)
[2018-04-30] MEDS: OMEPRAZOLE 20 MG CAPSULE PO SCH (06:30)
[2018-04-30] MEDS: POLYETHYL GLYCOL 3350 17gm PACKET PO SCH (08:31)
[2018-04-30] MEDS: CALCIUM 500 + VIT D 200 TABLET PO SCH ×2 (08:33→21:55)
[2018-04-30] MEDS: MULTI-VITAMIN + MINERAL TABLET PO SCH (08:33)
[2018-04-30] MEDS: SUCRALFATE 1 GM TABLET PO SCH ×4 (08:34→21:30)
[2018-04-30] MEDS: CycloSPORINE 0.05% EYE DROPS 4ml EACH EYE SCH ×2 (08:34→21:44)
[2018-04-30] MEDS: GLIMEPIRIDE 2 MG TABLET PO SCH ×3 (08:34→17:15)
[2018-04-30] MEDS: METFORMIN 1,000 MG TABLET PO SCH ×2 (08:34→17:17)
[2018-04-30] MEDS: LIDOCAINE 5% PATCH TOP SCH (08:35)
[2018-04-30] MEDS: FEXOFENADINE 180 MG TABLET PO SCH (08:35)
[2018-04-30] MEDS: SENNA + DOCUSATE TABLET PO SCH ×2 (08:36→21:31)
[2018-04-30] MEDS ORDERED: FERROUS SULFATE 324 MG TABLET PO SCH (09:00)
[2018-04-30] MEDS ORDERED: LIDOCAINE PATCH REMOVAL TP SCH (09:00)
[2018-04-30] MEDS: INSULIN ASPART 100unit/ml INJECTION SQ PRN ×3 (11:17→22:07)
[2018-04-30] MEDS: APAP/DIPHENHYDRAMINE 500 MG/25 MG TABLET PO PRN (21:30)
[2018-04-30] MEDS: ASPIRIN 81 MG CHEWABLE TABLET PO SCH (21:30)
[2018-04-30] MEDS: MELATONIN 1 MG TABLET PO PRN (21:31)
[2018-04-30] MEDS: DONEPEZIL 10 MG TABLET PO SCH (21:31)
[2018-04-30] MEDS: LIDOCAINE PATCH REMOVAL TP SCH (21:35)
[2018-04-30] MEDS: SIMVASTATIN 40 MG TABLET PO SCH (21:46)
[2018-05-01] MEDS: INSULIN ASPART 100unit/ml INJECTION SQ PRN ×4 (06:02→20:33)
[2018-05-01] MEDS: OMEPRAZOLE 20 MG CAPSULE PO SCH (06:03)
[2018-05-01] MEDS: HYDROCODONE/APAP 7.5 MG/325 MG TABLET PO PRN ×2 (06:06→17:56)
[2018-05-01] MEDS: POLYETHYL GLYCOL 3350 17gm PACKET PO SCH (08:40)
[2018-05-01] MEDS: GLIMEPIRIDE 2 MG TABLET PO SCH ×3 (08:41→17:56)
[2018-05-01] MEDS: METFORMIN 1,000 MG TABLET PO SCH ×2 (08:41→17:56)
[2018-05-01] MEDS: SUCRALFATE 1 GM TABLET PO SCH ×4 (08:41→20:23)
[2018-05-01] MEDS: SENNA + DOCUSATE TABLET PO SCH ×2 (08:42→20:22)
[2018-05-01] MEDS: LIDOCAINE 5% PATCH TOP SCH (08:42)
[2018-05-01] MEDS: MULTI-VITAMIN + MINERAL TABLET PO SCH (08:47)
[2018-05-01] MEDS: CycloSPORINE 0.05% EYE DROPS 4ml EACH EYE SCH ×2 (08:53→20:22)
[2018-05-01] MEDS: CALCIUM 500 + VIT D 200 TABLET PO SCH ×2 (08:54→20:22)
[2018-05-01] MEDS: Bisacodyl EC TAB 5 MG TABLET PO PRN (08:54)
[2018-05-01] MEDS: FEXOFENADINE 180 MG TABLET PO SCH (12:50)
[2018-05-01] MEDS: SIMVASTATIN 40 MG TABLET PO SCH (20:22)
[2018-05-01] MEDS: ASPIRIN 81 MG CHEWABLE TABLET PO SCH (20:22)
[2018-05-01] MEDS: DONEPEZIL 10 MG TABLET PO SCH (20:22)
[2018-05-01] MEDS: LIDOCAINE PATCH REMOVAL TP SCH (20:22)
[2018-05-01] MEDS: APAP/DIPHENHYDRAMINE 500 MG/25 MG TABLET PO PRN (20:23)
[2018-05-01] MEDS: MELATONIN 1 MG TABLET PO PRN (20:23)
[2018-05-02] MEDS: OMEPRAZOLE 20 MG CAPSULE PO SCH (05:47)
[2018-05-02] MEDS: HYDROCODONE/APAP 7.5 MG/325 MG TABLET PO PRN ×5 (05:47→23:45)
[2018-05-02] MEDS: POLYETHYL GLYCOL 3350 17gm PACKET PO SCH (08:47)
[2018-05-02] MEDS: METFORMIN 1,000 MG TABLET PO SCH (08:48)
[2018-05-02] MEDS: GLIMEPIRIDE 2 MG TABLET PO SCH ×3 (08:48→17:30)
[2018-05-02] MEDS: CALCIUM 500 + VIT D 200 TABLET PO SCH ×2 (08:49→20:57)
[2018-05-02] MEDS: MULTI-VITAMIN + MINERAL TABLET PO SCH (08:49)
[2018-05-02] MEDS: SUCRALFATE 1 GM TABLET PO SCH ×4 (08:49→20:58)
[2018-05-02] MEDS: CycloSPORINE 0.05% EYE DROPS 4ml EACH EYE SCH ×2 (08:49→20:58)
[2018-05-02] MEDS: SENNA + DOCUSATE TABLET PO SCH ×2 (08:49→20:57)
[2018-05-02] MEDS: LIDOCAINE 5% PATCH TOP SCH (10:42)
[2018-05-02] MEDS: INSULIN ASPART 100unit/ml INJECTION SQ PRN ×3 (10:42→21:05)
[2018-05-02] MEDS: FEXOFENADINE 60 MG TABLET PO SCH (10:43)
--- NOTE | 2018-05-02 11:53 | IRU Plan of Care ---
[facility] Overall Plan of Care - Date Date: 05/02/18 - Patient Impairments (1) S/P lumbar spinal fusion Code(s): Z98.1 - Arthrodesis status Status: Acute Classification: Present on IRF Admission, IRF Tx That Should Address Diagnosis, Diagnosis Requiring Medical Follow Up (2) Neuropathic pain Code(s): M79.2 - Neuralgia and neuritis, unspecified Status: Acute Classification: Present on IRF Admission, IRF Tx That Should Address Diagnosis, Diagnosis Requiring Medical Follow Up (3) CKD (chronic kidney disease) stage 3, GFR 30-59 ml/min Code(s): N18.3 - Chronic kidney disease, stage 3 (moderate) Status: Chronic Classification: Present on IRF Admission, Diagnosis Requiring Medical Follow Up (4) Diabetes mellitus type 2, uncontrolled, without complications Qualifiers: Diabetes mellitus nursing home insulin use: without ferry terminal agent use Qualified Code(s): E11.65 - Type 2 diabetes mellitus with hyperglycemia Code(s): E11.65 - Type 2 diabetes mellitus with hyperglycemia Status: Chronic Classification: Present on IRF Admission, IRF Tx That Should Address Diagnosis, Diagnosis Requiring Medical Follow Up - Relevant Changes Relevant Changes: No Reviewed: I have reviewed the patient's information and concur with the finding and results of the pre-admission screen. Certification: I certify the patient for rehabilitation. - Medical Prognosis Medical Prognosis: Good Vital Signs: Last Vital Signs Temp 98.1 F 05/02/18 07:30 Pulse 91 05/02/18 07:30 Resp 18 05/02/18 07:30 BP 156/75 H 05/02/18 07:30 Pulse Ox 95 05/02/18 07:30 - Anticipated Interventions Anticipated Interventions: The patient requires inpatient IRF care for PT, OT, and/or ST for residuals remaining from interbody lumbar spinal fusion resulting in muscular weakness and strength deficits. An individualized overall plan of care has been developed after careful review of the patient's preadmission screening, post admission physician evaluation and assessments of all therapy disciplines and/ or other pertinent clinicians involved in treating the patient. This indicates medical necessity and rehabilitation necessity have been established through a thorough review of all available medical information. Strength Deficits: Right Lower Extremity, Left Lower Extremity - Current Functional Status Failed Alternative Therapy: Arrived from Acute Care Patient Requires: The patient requires oversight by rehabilitation physician to manage their rehabilitation treatment plan and multidisciplinary approach to care that can only be provided in an IRF and requires a multidisciplinary approach to care, provided by professional PTs, OTs, STs, rehabilitation nurses, and may require STs, dieticians, and RTS. This is not available in lesser levels of care. Physical Therapy Minutes: 90 Occupational Therapy Minutes: 90 Therapy: The patient is to receive therapy at least 5 days a week. - Anticipated LOS/Outcomes Anticipated Functional Outcome: It is anticipated the patient will be able to return to his home with outpatient or home health physical therapy with adequate pain relief and able to perform his ADLs in a safe manner. Expected functional improvements include: -- Modified independant to independant ambulation with or without assistive device -- Modified independant to independant ADL's with or without assistive device -- Return to pre-morbid level of mobility -- Maximize level of mobility and ADL's to decrease burden on any caregiver involved with this patient's care Anticipated Length of Stay (days): 7 Anticipated DC Destination: Home Health Service Home Safety Plan: The patient will be provided with the development of a Home Safety Plan for return to a home or home-like environment and and to ensure safety post discharge. - Plan to Avoid Complications Barriers to Attaining Goals: Weakness, Endurance, Pain Control Plan to Avoid Complications: The patient cannot receive this care in a lesser intensive setting such as Correction or Outpatient Therapy due to the patient requiring the following : This patient has continuing pain in his low back status post transforaminal lumbar spinal fusion. In addition he has diabetes mellitus and hypertension along with chronic kidney disease and chronic coronary artery disease. He requires a multidisciplinary approach with PT, OT and medical supervision in view of these medical issues.
--- NOTE | 2018-05-02 14:24 | IRU Progress Note ---
- Subjective/Serverity of Illness Date: 05/02/18 Mr. Flores was interviewed in his room with his daughter present. He reports nerve "spasms" in his back at the site of the surgery. He has had lower extremity weakness as well as radicular pains in the lower extremities. The radicular pains are improved although still has some reduced sensation he reports. The patient does have history of some reduced memory as well. His blood sugars at home are monitored twice daily. They're running between 98 - 150 for fasting at home. Here in the hospital they are around 200. He does not use insulin at home. He reports significant pain in his low back primarily with transfers. Once he gets up and walking he is doing better. He is using his brace as recommended. He lives independently at [facility] in an apartment. He does not have any steps. Update on medical issues were actively monitoring and managing as follows: 1. Status post lumbar fusion with nerve pain: He has evidence of radiculopathy with pain going down both legs prior to the surgery. As result he also has some lower extremity weakness. At the present time he is having "nerve spasms" in his low back. For this we'll add on some low-dose gabapentin. 2. Diabetes mellitus type 2: His blood sugars are reviewed. He is not on insulin at home. His sugars are around 200 or so. 3. Hypertension: His blood pressures appear to be adequately controlled. 4. Dementia 5. ASHD: He denies any chest pain. Exam Vital Signs: Temperature 98.1 F 05/02/18 07:30 Pulse Rate 91 05/02/18 07:30 Respiratory Rate 18 05/02/18 07:30 Blood Pressure 156/75 H 05/02/18 07:30 Pulse Oximetry 95 05/02/18 07:30 Height/Weight/BMI: Height 1.7 m Weight 82.8 kg Body Mass Index 28.5 - Constitutional Present: mild distress (low back spasms), well nourished, well developed, average body habitus, cooperative - Routine HEENT Exam Head: Present: normocephalic, atraumatic Eye: Present: EOMI ENT: Present: mucous membranes moist, oropharynx clear - Routine Neck Exam Present: supple - Routine Respiratory Exam Present: CTA bilaterally. Absent: wheezes - Routine Cardiovascular Exam Present: RRR, S1, S2. Absent: murmur - Routine Abdominal Exam Present: soft, normoactive bowel sounds, non distended. Absent: tenderness - Routine Extremities Exam Present: no edema, normal capillary refill - Routine Back/Spine/Pelvis Exam Back/Spine: Absent: full ROM - Routine Skin Exam Present: dry, warm - Routine Neurological Exam Present: alert, oriented X3, CN II-XII intact - Routine Psychiatric Exam Present: normal affect, cooperative, anxious Results IRU - Labs Labs: Have reviewed other providers notes as well as laboratory findings etc. IRU A/P (1) S/P lumbar spinal fusion Current visit: Yes Status: Acute Patient continues to wear his brace. He is making functional progress with regard to therapies. Does have some memory loss which hinders progress to some degree. (2) Neuropathic pain Current visit: Yes Status: Acute Complains of nerve type pain in his low back. Does not have radiation down the legs at present but did previously. He does have evidence of lower extremity weakness. We'll add on gabapentin. (3) CKD (chronic kidney disease) stage 3, GFR 30-59 ml/min Problem details: Mild Current visit: No Status: Chronic GFR is improved at the present time. (4) Diabetes mellitus type 2, uncontrolled, without complications Qualifiers: Diabetes mellitus fdc insulin use: without ocean transportation intermediary use Qualified Code(s): E11.65 - Type 2 diabetes mellitus with hyperglycemia Problem details: Good control by A1c. Current visit: No Status: Chronic Blood sugars are reviewed. Resuscitation Status: Do Not Resuscitate - Course Hospital Course: Kennedy Sesay MD: 05/02/18 14:25 Patient is cooperative with therapy. Blood sugars remain a bit high. Complains of back "spasms" and we will add on gabapentin. - Interventions to Obtain Goals PT Treatment Plan: Balance/Proprioception, Functional Activities, Gait Training , Patient/Family Education, Therapeutic Exercise OT Treatment Plan: ADL (Basic Care), Balance Training, IADL, Pt./Family Education, Ther. Exercise for ADL Goals Progress/Modifications: Overall he seems to be progressing with therapy. He does have some dementia which may hinder his progress of it. Does complain of low back nerve type pain. Likely does have history of radiculopathy based on his description with pain down both legs prior to the surgery. At the present time will add on a low-dose of gabapentin at 100 mg 3 times daily. We will gradually increase this as tolerated.
[2018-05-02] MEDS: GABAPENTIN 100 MG CAPSULE PO SCH ×2 (14:53→20:57)
--- NOTE | 2018-05-02 15:34 | Progress Note ---
- Date 05/02/18 Subjective: José Miguel is hurting worse today - he states therapy "about did me in". Dtr reports that he's been eating more carbs here as well and just today he started to cut back on his carb servings. Further, Dr. Kirk reduced Metformin dose 2 weeks ago. After discussion, they both prefer to go back up on Metformin dose. He can also start taking 2 pain pills. He reports that he finally had a bowel movement. No SOA/chest pain. They report that the dressing is intact to his back without drainage. Objective Vital signs: Temperature 98.1 F 05/02/18 07:30 Pulse Rate 91 05/02/18 07:30 Respiratory Rate 18 05/02/18 07:30 Blood Pressure 156/75 H 05/02/18 07:30 Pulse Oximetry 95 05/02/18 07:30 Height/Weight/BMI: Height 1.7 m Weight 82.8 kg Body Mass Index 28.5 - Constitutional Present: no acute distress, well nourished, well developed, thin - Routine HEENT Exam Head: Present: normocephalic Eye: Present: PERRL. Absent: conjunctival icterus, scleral injection - Routine Respiratory Exam Present: CTA bilaterally - Routine Cardiovascular Exam Present: RRR, S1, S2, murmur (5/6) - Routine Abdominal Exam Present: soft, normoactive bowel sounds, non distended, non tender - Routine Extremities Exam Present: pulses intact Comments: sam puga b/l - Routine Back/Spine/Pelvis Exam Comments: back brace is not on currently. He is icing his back. - Routine Skin Exam Present: intact, dry, warm - Routine Neurological Exam Present: alert, oriented X3, normal speech - Routine Psychiatric Exam Present: normal affect, normal thought process, cooperative Results - Labs CBC & Chem 7: 04/30/18 04:05 04/30/18 04:05 Assessment and Plan Assessment and Plan: Assessment Status post L4-L5 fusion on 04/26/18 Hyperkalemia, at [facility] Constipation Coronary artery disease. Peripheral artery disease and carotid artery stenosis. History of non-Hodgkin's lymphoma, and mantle cell lymphoma. Hypertension Dyslipidemia. Type 2 diabetes. Stage III chronic kidney disease. BPH Dementia Plan Discussed hyperglycemia with patient, daughter, Dr. Nixon - increase Metformin to 1250 mg BID. Pt has also decided to cut back on carb servings to match his home carb intake. Increased pain - continue narcotics. This might explain some of the elevation in BP - could also consider increasing metoprolol (HR would tolerate) or starting low-dose amlodipine if BP remains elevated despite additional pain control measures. Cont bowel motivation. GI Prophylaxis: Omeprazole Resuscitation Status: Do Not Resuscitate - Physician Narrative Physician: Olena Nixon MD Narrative: Date: 05/02/18 Time: 1944 I have independently evaluated and examined this patient. I reviewed the chart, the patient's history, and the ICT SECURITY SPECIALIST/PA's documented findings as above. We discussed and formulated the assessment and plan as above with additions as below: Mr. Flores indicated relief that he finally has had a couple BMs. He continues to have significant back pain. Blood pressures noted to be moderately elevated recent days in addition to elevated blood sugars. NAD, respirations nonlabored Bowel sounds present, abdomen soft, nontender; lumbar brace on Given return of bowel function I have resumed iron supplementation. Agree with increasing metformin dose at least temporarily until activity level and dietary modifications allow lowering dose. Continue to monitor blood pressure-may require increase metoprolol dose or at least conversion to twice a day dosing since is on tartrate. Hospital Course Summary Disclaimer: The visit summary below is not to be considered part of the above Progress Note. Hospital Course: 04/29/18 PT and OT orders as well as pain medication per attending. With history of dementia, be cautious with use of narcotics. Recheck chemistry panel tomorrow morning with recent history of hyperkalemia. Would recommend checking CBC due to recent surgery and history of non-Hodgkin's lymphoma. Monitor blood sugars, sliding scale insulin available. Continue metformin and glimepiride. Continue medications for coronary artery disease, hypertension, dyslipidemia, history of GERD and PUD. Continue with bowel regimen. CODE STATUS: DO NOT RESUSCITATE. 05/02/18 Discussed hyperglycemia with patient, daughter, Dr. Nixon - increase Metformin to 1250 mg BID. Pt has also decided to cut back on carb servings to match his home carb intake. Increased pain - continue narcotics. This might explain some of the elevation in BP - could also consider increasing metoprolol (HR would tolerate) or starting low-dose amlodipine if BP remains elevated despite additional pain control measures. Cont bowel motivation.
[2018-05-02] MEDS: METFORMIN 500 MG TABLET PO SCH (18:13)
[2018-05-02] MEDS: CYCLOBENZAPRINE 5 MG TABLET PO PRN (19:46)
[2018-05-02] MEDS: ASPIRIN 81 MG CHEWABLE TABLET PO SCH (20:57)
[2018-05-02] MEDS: DONEPEZIL 10 MG TABLET PO SCH (20:57)
[2018-05-02] MEDS: SIMVASTATIN 40 MG TABLET PO SCH (20:57)
[2018-05-02] MEDS: LIDOCAINE PATCH REMOVAL TP SCH (20:58)
[2018-05-03] MEDS: HYDROCODONE/APAP 7.5 MG/325 MG TABLET PO PRN ×3 (05:57→15:25)
[2018-05-03] MEDS: OMEPRAZOLE 20 MG CAPSULE PO SCH (05:57)
[2018-05-03] MEDS: METFORMIN 500 MG TABLET PO SCH ×2 (08:14→17:26)
[2018-05-03] MEDS: GABAPENTIN 100 MG CAPSULE PO SCH ×3 (08:15→21:19)
[2018-05-03] MEDS: GLIMEPIRIDE 2 MG TABLET PO SCH ×3 (08:16→17:26)
[2018-05-03] MEDS: FERROUS GLUCONATE 324 MG TABLET PO SCH (08:16)
[2018-05-03] MEDS: SUCRALFATE 1 GM TABLET PO SCH ×4 (08:17→21:20)
[2018-05-03] MEDS: MULTI-VITAMIN + MINERAL TABLET PO SCH (08:17)
[2018-05-03] MEDS: CALCIUM 500 + VIT D 200 TABLET PO SCH ×2 (08:17→21:19)
[2018-05-03] MEDS: SENNA + DOCUSATE TABLET PO SCH ×2 (08:18→21:19)
[2018-05-03] MEDS: CycloSPORINE 0.05% EYE DROPS 4ml EACH EYE SCH (08:19)
[2018-05-03] MEDS: LIDOCAINE 5% PATCH TOP SCH (08:22)
[2018-05-03] MEDS: POLYETHYL GLYCOL 3350 17gm PACKET PO SCH (08:22)
[2018-05-03] MEDS: FEXOFENADINE 60 MG TABLET PO SCH (08:31)
[2018-05-03] MEDS: INSULIN ASPART 100unit/ml INJECTION SQ PRN ×2 (10:22→14:47)
--- NOTE | 2018-05-03 11:16 | IRU Progress Note ---
- Subjective/Serverity of Illness Date: 05/03/18 Mr. Flores was reassessed in his room on inpatient rehabilitation. He reports an itchy area on his back. He says that he would twist and turn and it feels better at times. Uncertain when this started. Lidocaine patch has been used in the area although there is redness apart for the lidocaine patch was located. He continues to have leg weakness and discomfort in the back when he is transferring. Once he gets up and about he feels better. He denies any chest pain or shortness of breath. He continues to have the back pain as previously noted. We did start gabapentin yesterday. Exam Vital Signs: Temperature 97.9 F 05/03/18 08:00 Pulse Rate 90 05/03/18 08:00 Respiratory Rate 18 05/03/18 08:00 Blood Pressure 172/71 H 05/03/18 08:00 Pulse Oximetry 96 05/03/18 08:00 Height/Weight/BMI: Height 1.7 m Weight 82.8 kg Body Mass Index 28.5 - Constitutional Present: mild distress (back pain and itching), well nourished, well developed, cooperative - Routine HEENT Exam Head: Present: normocephalic Eye: Present: EOMI ENT: Present: mucous membranes moist, oropharynx clear - Routine Neck Exam Present: supple - Routine Respiratory Exam Present: CTA bilaterally. Absent: wheezes - Routine Cardiovascular Exam Present: RRR, S1, S2. Absent: murmur - Routine Abdominal Exam Present: soft, normoactive bowel sounds, non distended. Absent: tenderness - Routine Extremities Exam Present: no edema, normal capillary refill - Routine Back/Spine/Pelvis Exam Back/Spine: Absent: full ROM - Routine Skin Exam Present: dry, warm, rash (red rash noted on his low back. This is in a wide distribution measuring roughly 8-10 cm top to bottom and 20 cm or so left to right. It is bilaterally equal. It is papular. No vesicles are seen. Almost rectangular in distribution.) - Routine Neurological Exam Present: alert, oriented X3 (uncertain if he is fully oriented (reduced memory present)), CN II-XII intact - Routine Psychiatric Exam Present: normal affect, cooperative. Absent: depressed, anxious Results IRU - Labs Labs: Have reviewed the chart dated including labs and other providers notes. IRU A/P (1) S/P lumbar spinal fusion Current visit: Yes Status: Acute Continues to have the expected amount of discomfort up with transfers. Progressing with therapy and able to ambulate with front-wheeled walker. (2) Neuropathic pain Current visit: Yes Status: Acute *Gabapentin yesterday and awaiting benefit. 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 Current visit: No Status: Chronic Blood sugars continue to be a bit elevated. Total caloric intake is reduced. (5) Contact dermatitis Qualifiers: Contact dermatitis type: irritant Contact dermatitis trigger: unspecified trigger Qualified Code(s): L24.9 - Irritant contact dermatitis, unspecified cause Current visit: Yes Status: Acute Etiology of his dermatitis is not clear but may be related to the lidocaine patch versus heat. We will try topical hydrocortisone. Resuscitation Status: Do Not Resuscitate - Course Hospital Course: Kennedy Sesay MD: 05/02/18 14:25 Patient is cooperative with therapy. Blood sugars remain a bit high. Complains of back "spasms" and we will add on gabapentin. 05/03/18 11:17 Continues to progress with therapy. Blood sugars remain in the high 150-200 range. Awaiting results of gabapentin for his back pain. Has a red rash and low back as described. - Interventions to Obtain Goals PT Treatment Plan: Balance/Proprioception, Functional Activities, Gait Training , Patient/Family Education, Therapeutic Exercise OT Treatment Plan: ADL (Basic Care), Balance Training, IADL, Pt./Family Education, Ther. Exercise for ADL Goals Progress/Modifications: Continues to have discomfort in his back with transfers as anticipated. Some lower extremity weakness also subjectively present. Likely this is radicular from his back stenosis previously noted. He has a red rash on his low back which is itchy. This is papular and rectangular in distribution implying it may be related to either heat or lidocaine patch. In this regard we'll discontinue the lidocaine patch and apply hydrocortisone lotion to the area. In addition we will start dressing changes as needed.
--- NOTE | 2018-05-03 14:07 | IRU Team Meeting ---
IRU Team Meeting - Nursing Bladder Assistive Devices Utilized:: Absorbent Pad Bladder Management Level of Assist: Modified Independent Bladder Frequency of Accidents: No accidents Bowel Assistive Devices Utilized:: Medication Bowel Management Level of Assist: Modified Independent Bowel Frequency of Accidents: No accidents Vital Signs: Vital Signs - 24 hr 05/02/18 16:01 05/02/18 20:30 05/03/18 08:00 Temperature 98.8 F 97.9 F 97.9 F Pulse Rate 78 69 90 Respiratory Rate 18 20 18 Blood Pressure 148/67 H 157/68 H 172/71 H Pulse Oximetry 98 98 96 Current Medications: Acetaminophen (Tylenol) 1,000 mg PO Q4HPRN PRN PRN Reason: Pain Last Admin: 05/02/18 13:34 Dose: 1,000 mg Acetaminophen/Diphenhydramine HCl (Tylenol Pm) 1 - 2 tab PO HS PRN PRN Reason: Sleep Stop: 05/06/18 14:34 Last Admin: 05/01/18 20:23 Dose: 1 tab Hydrocodone Bitart/Acetaminophen ([place] 7.5/325) 1 - 2 tab PO Q4HR PRN PRN Reason: Pain Stop: 05/06/18 14:34 Last Admin: 05/03/18 11:19 Dose: 2 tab Aspirin (Asa) 81 mg PO HS [facility] Last Admin: 05/02/18 20:57 Dose: 81 mg Benzocaine (Cepacol Sore Throat Lozenge) 1 lozenge PO PRN PRN PRN Reason: Sore throat Bisacodyl (Dulcolax) 5 - 10 mg PO DAILY PRN PRN Reason: Constipation Stop: 05/06/18 14:34 Last Admin: 05/01/18 08:54 Dose: 10 mg Bisacodyl (Dulcolax) 10 mg RECTALLY DAILY PRN PRN Reason: Constipation Calcium/Vitamin D (Os Sacha-D 500) 1 tab PO BID [facility] Last Admin: 05/03/18 08:17 Dose: 1 tab Cyclobenzaprine HCl (Flexeril) 5 mg PO Q8H PRN PRN Reason: Muscle spasm Last Admin: 05/02/18 19:46 Dose: 5 mg Cyclosporine (Restasis) 2 drop EACH EYE BID [facility] Last Admin: 05/03/18 08:19 Dose: 2 drop Donepezil HCl (Aricept 10 Mg) 10 mg PO HS [facility] Last Admin: 05/02/18 20:57 Dose: 10 mg Famotidine (Pepcid) 20 mg PO BID PRN PRN Reason: Indigestion Ferrous Gluconate (Fergon) 324 mg PO WB [facility] Last Admin: 05/03/18 08:16 Dose: 324 mg Fexofenadine HCl (Lucinda) 60 mg PO DAILY [facility] Last Admin: 05/03/18 08:31 Dose: 60 mg Gabapentin (Neurontin) 100 mg PO TID [facility] Last Admin: 05/03/18 08:15 Dose: 100 mg Glimepiride (Amaryl) 2 mg PO TIDWM [facility] Last Admin: 05/03/18 13:27 Dose: 2 mg Hydrocortisone (Hydrocortisone 2.5% Lotion) 1 applic TOP BID [facility] Insulin Aspart (Novolog) 1 - 5 unit SQ SS PRN; Protocol PRN Reason: Hyperglycemia Last Admin: 05/03/18 10:22 Dose: 3 unit Magnesium Hydroxide (Mom) 30 ml PO DAILY PRN PRN Reason: Constipation Last Admin: 05/01/18 12:51 Dose: 30 ml Melatonin (Melatonin) 1 mg PO HS PRN PRN Reason: Sleep Last Admin: 05/01/18 20:23 Dose: 1 mg Metformin HCl (Glucophage) 1,250 mg PO BIDWM [facility] Last Admin: 05/03/18 08:14 Dose: 1,250 mg Metoprolol Tartrate (Lopressor) 50 mg PO [facility] Last Admin: 05/03/18 08:18 Dose: 50 mg Multivitamins/Minerals (Therapeutic - M) 1 tab PO DAILY [facility] Last Admin: 05/03/18 08:17 Dose: 1 tab Nitroglycerin (Nitrostat) 0.4 mg SL Q5M PRN PRN Reason: Chest pain Omeprazole (Prilosec) 20 mg PO ACB [facility] Last Admin: 05/03/18 05:57 Dose: 20 mg Polyethylene Glycol (Miralax) 17 gm PO DAILY [facility] Last Admin: 05/03/18 08:22 Dose: 17 gm Senna/Docusate Sodium (Senna Plus Tablet) 2 tab PO BID [facility] Last Admin: 05/03/18 08:18 Dose: 2 tab Simvastatin (Zocor) 40 mg PO HS [facility] Last Admin: 05/02/18 20:57 Dose: 40 mg Sucralfate (Carafate) 1 gm PO AC30HS [facility] Last Admin: 05/03/18 13:27 Dose: 1 gm Throat Lozenges (Chloraseptic [place]) 1 spray PO PRN PRN PRN Reason: Sore throat Current Medical Issues: DM II, hypertension, back spasms, leg weakness, rash on back Comments: I certify that I personally led the interdisciplinary team meeting and agree with comments, barriers and goals indicated. Team meeting was held in the patient's room with the patient and the following family members present: patient's three daughters Mr. Flores has been cooperative. He has developed a rash on his low back for which we are using hydrocortisone lotion. His blood sugars are reviewed and are running between 160 and 200. Blood pressures are 148 up to 172. Continues to complain of discomfort in his back with transfers which is anticipated. - Physical Therapy Bed, Chair, Wheelchair Transfer Assist: Stand By Assist/Supervision, 1 Person Assist Ambulation Ability: Stand By Assist/Supervision, 1 Person Assist Ambulation Distance: 190 Stair Climbing Ability: Contact Guard Assistance Number of Steps Climbed: 4 Car Transfer Ability: Stand By Assist/Supervision, 1 Person Assist Comments: He is doing well with transfers but does complain of acute pain when nursing home up to standing. He appears to have adequate safety awareness. Has had shooting pain in his lower back and right hip and groin recently. He has been started on gabapentin. Able to ambulate 190 feet with a 4 wheeled walker with standby assist. - Occupational Therapy Eating Ability: Independent Grooming Ability: Stand By Assist/Supervision Bathing Ability: Stand By Assist/Supervision Upper Body Dressing Ability: Modified Independent Lower Body Dressing Ability: Stand By Assist/Supervision Tub Transfer Assist: Patient Refuses Toileting Assist: Modified Independent Toilet Transfer Assist: Stand By Assist/Supervision, 1 Person Assist Comments: Assisted devices are offered. He is progressing toward therapy goals. ADLs at modified independent to supervision level. He is able to place his LSO brace without assistance. - Goals Physical Therapy Goals: 05/03/18 Goals: 1.) Modified independence with transfers and ambulation. 2.) Balance goal of 24/28 on Tinetti Balance Assessment Occupational Therapy Goals: OT goals 05/03/18: 1.) Lower body dressing with modified independence. 2.) Toiletig with modified independence. 3.) Light meal preparation with modified independence. - Barriers to Discharge Barriers to Attaining Goals: Endurance (to increase endurance, fewer rest breaks and increased activity time is recommended.) - Care Plan Anticipated Length of Stay (days): 7 Anticipated DC Destination: Home Health Service I have led this team conference and agree with the plan. Interventions/Goals: Patient lives in independent living at [facility]. Patient is progressing well with therapy. Medically he is stable. We anticipate a safe transition to his home environment in one week. Questions were addressed with patient and family. May require home health at that time versus outpatient therapy.
[2018-05-03] MEDS: HYDROCORTISONE 2.5% LOTION 59ml TOP SCH ×2 (14:40→21:20)
[2018-05-03] MEDS: ASPIRIN 81 MG CHEWABLE TABLET PO SCH (21:19)
[2018-05-03] MEDS: DONEPEZIL 10 MG TABLET PO SCH (21:19)
[2018-05-03] MEDS: SIMVASTATIN 40 MG TABLET PO SCH (21:20)
[2018-05-03] MEDS: CYCLOBENZAPRINE 5 MG TABLET PO PRN (21:21)
[2018-05-04] MEDS: CycloSPORINE 0.05% EYE DROPS 4ml EACH EYE SCH ×3 (05:07→21:07)
[2018-05-04] MEDS: OMEPRAZOLE 20 MG CAPSULE PO SCH (06:14)
[2018-05-04] MEDS: HYDROCODONE/APAP 7.5 MG/325 MG TABLET PO PRN ×2 (06:14→12:53)
[2018-05-04] MEDS: POLYETHYL GLYCOL 3350 17gm PACKET PO SCH (08:33)
[2018-05-04] MEDS: SUCRALFATE 1 GM TABLET PO SCH ×4 (08:34→21:08)
[2018-05-04] MEDS: FERROUS GLUCONATE 324 MG TABLET PO SCH (08:34)
[2018-05-04] MEDS: GLIMEPIRIDE 2 MG TABLET PO SCH ×3 (08:34→17:22)
[2018-05-04] MEDS: METFORMIN 500 MG TABLET PO SCH ×2 (08:35→17:21)
[2018-05-04] MEDS: CALCIUM 500 + VIT D 200 TABLET PO SCH ×2 (08:36→21:08)
[2018-05-04] MEDS: GABAPENTIN 100 MG CAPSULE PO SCH ×3 (08:36→21:09)
[2018-05-04] MEDS: FEXOFENADINE 60 MG TABLET PO SCH (08:36)
[2018-05-04] MEDS: HYDROCORTISONE 2.5% LOTION 59ml TOP SCH ×2 (08:36→21:09)
[2018-05-04] MEDS: SENNA + DOCUSATE TABLET PO SCH ×2 (08:37→21:07)
[2018-05-04] MEDS: MULTI-VITAMIN + MINERAL TABLET PO SCH (08:37)
[2018-05-04] MEDS: INSULIN ASPART 100unit/ml INJECTION SQ PRN (10:56)
[2018-05-04] MEDS: MELATONIN 1 MG TABLET PO PRN (21:05)
[2018-05-04] MEDS: APAP/DIPHENHYDRAMINE 500 MG/25 MG TABLET PO PRN (21:05)
[2018-05-04] MEDS: ASPIRIN 81 MG CHEWABLE TABLET PO SCH (21:06)
[2018-05-04] MEDS: DONEPEZIL 10 MG TABLET PO SCH (21:08)
[2018-05-04] MEDS: SIMVASTATIN 40 MG TABLET PO SCH (21:08)
[2018-05-05] MEDS: HYDROCODONE/APAP 7.5 MG/325 MG TABLET PO PRN ×2 (06:25→13:21)
[2018-05-05] MEDS: OMEPRAZOLE 20 MG CAPSULE PO SCH (06:25)
[2018-05-05] MEDS: HYDROCORTISONE 2.5% LOTION 59ml TOP SCH ×3 (07:46→20:38)
[2018-05-05] MEDS: METFORMIN 500 MG TABLET PO SCH ×2 (09:04→18:27)
[2018-05-05] MEDS: SENNA + DOCUSATE TABLET PO SCH ×2 (09:05→20:38)
[2018-05-05] MEDS: MULTI-VITAMIN + MINERAL TABLET PO SCH (09:05)
[2018-05-05] MEDS: POLYETHYL GLYCOL 3350 17gm PACKET PO SCH (09:05)
[2018-05-05] MEDS: FERROUS GLUCONATE 324 MG TABLET PO SCH (09:06)
[2018-05-05] MEDS: SUCRALFATE 1 GM TABLET PO SCH ×4 (09:06→20:38)
[2018-05-05] MEDS: GABAPENTIN 100 MG CAPSULE PO SCH ×3 (09:10→20:37)
[2018-05-05] MEDS: FEXOFENADINE 60 MG TABLET PO SCH (09:10)
[2018-05-05] MEDS: CALCIUM 500 + VIT D 200 TABLET PO SCH ×2 (09:12→20:38)
[2018-05-05] MEDS: GLIMEPIRIDE 2 MG TABLET PO SCH ×3 (09:13→18:27)
[2018-05-05] MEDS: CycloSPORINE 0.05% EYE DROPS 4ml EACH EYE SCH ×2 (09:13→20:39)
[2018-05-05] MEDS: INSULIN ASPART 100unit/ml INJECTION SQ PRN ×3 (10:26→20:36)
--- NOTE | 2018-05-05 11:24 | IRU Progress Note ---
- Subjective/Serverity of Illness Date: 05/05/18 Mr. Flores was reassessed in his room on acute inpatient rehabilitation. He seems to be comfortable. He reports that his back pain is improved with transfers compared to a couple of days ago. In addition the itching on his back is much improved except for the midline. I did inspect his low back. Rash is fairly well resolved. He has 2 incisions vertically 1 on each side of the midline with giovana in place. These are due to come out next Wednesday on the . No evidence of inflammation in the wounds at all. From a therapy standpoint, the patient is modified independent for toilet transfers. He is standby assist to contact-guard assist for transfers. He certainly is improving and it is anticipated that he will be able to safely transfer to his home environment early next week. His bowels continue to be a bit sluggish. Exam Vital Signs: Temperature 98.7 F 05/05/18 08:00 Pulse Rate 96 05/05/18 08:00 Respiratory Rate 16 05/05/18 08:00 Blood Pressure 120/64 05/05/18 08:00 Pulse Oximetry 96 05/05/18 08:00 Height/Weight/BMI: Height 1.7 m Weight 80.5 kg Body Mass Index 28.5 - Constitutional Present: no acute distress, well nourished, well developed, cooperative - Routine HEENT Exam Eye: Present: EOMI ENT: Present: mucous membranes moist, oropharynx clear - Routine Respiratory Exam Present: CTA bilaterally. Absent: wheezes - Routine Cardiovascular Exam Present: RRR, S1, S2. Absent: murmur - Routine Abdominal Exam Present: soft, normoactive bowel sounds, non distended. Absent: tenderness - Routine Extremities Exam Present: no edema - Routine Back/Spine/Pelvis Exam Back/Spine: Absent: full ROM - Routine Skin Exam Present: dry, warm, wounds (please see above regarding his back wounds. These are benign appearing and without evidence of inflammation. There is the expected ecchymoses present.), rash (his lumbar spine area papular rash is markedly improved.) - Routine Neurological Exam Present: alert, oriented X3, CN II-XII intact - Routine Psychiatric Exam Present: normal affect Results IRU - Labs Labs: Have reviewed chart notes etc. IRU A/P (1) S/P lumbar spinal fusion Current visit: Yes Status: Acute Clinically he is improving with regard to pain management as well as functionally improving. (2) Neuropathic pain Current visit: Yes Status: Acute He reports his discomfort with transfers is improving as well. Sounds as though his gabapentin has been of benefit and we will increase this a bit. 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 Current visit: No Status: Chronic (5) Contact dermatitis Qualifiers: Contact dermatitis type: irritant Contact dermatitis trigger: unspecified trigger Qualified Code(s): L24.9 - Irritant contact dermatitis, unspecified cause Current visit: Yes Status: Acute Resuscitation Status: Do Not Resuscitate - Course Hospital Course: Kennedy Sesay MD: 05/02/18 14:25 Patient is cooperative with therapy. Blood sugars remain a bit high. Complains of back "spasms" and we will add on gabapentin. 05/03/18 11:17 Continues to progress with therapy. Blood sugars remain in the high 150-200 range. Awaiting results of gabapentin for his back pain. Has a red rash and low back as described. 05/05/18 11:24 Rash significant only improved and lumbar spine. Increase gabapentin. Sugars reviewed. - Interventions to Obtain Goals PT Treatment Plan: Balance/Proprioception, Functional Activities, Gait Training , Patient/Family Education, Therapeutic Exercise OT Treatment Plan: ADL (Basic Care), Balance Training, IADL, Pt./Family Education, Ther. Exercise for ADL Goals Progress/Modifications: Blood sugars are somewhat improved. He seems to be more comfortable with regard to pain management. We will increase his gabapentin a bit. In addition, the rash on the low back is markedly improved. His wounds look fine at the present time. Anticipate staple removal early next week on the .
[2018-05-05] MEDS: CYCLOBENZAPRINE 5 MG TABLET PO PRN (20:37)
[2018-05-05] MEDS: ASPIRIN 81 MG CHEWABLE TABLET PO SCH (20:38)
[2018-05-05] MEDS: DONEPEZIL 10 MG TABLET PO SCH (20:38)
[2018-05-05] MEDS: SIMVASTATIN 40 MG TABLET PO SCH (20:40)
[2018-05-06] MEDS: SUCRALFATE 1 GM TABLET PO SCH ×4 (06:38→20:57)
[2018-05-06] MEDS: HYDROCODONE/APAP 7.5 MG/325 MG TABLET PO PRN ×3 (06:38→17:40)
[2018-05-06] MEDS: OMEPRAZOLE 20 MG CAPSULE PO SCH (06:39)
[2018-05-06] MEDS: POLYETHYL GLYCOL 3350 17gm PACKET PO SCH (08:37)
[2018-05-06] MEDS: METFORMIN 500 MG TABLET PO SCH ×2 (08:38→17:41)
[2018-05-06] MEDS: GLIMEPIRIDE 2 MG TABLET PO SCH ×3 (08:38→17:40)
[2018-05-06] MEDS: FERROUS GLUCONATE 324 MG TABLET PO SCH (08:38)
[2018-05-06] MEDS: CycloSPORINE 0.05% EYE DROPS 4ml EACH EYE SCH ×2 (08:39→20:54)
[2018-05-06] MEDS: CALCIUM 500 + VIT D 200 TABLET PO SCH ×2 (08:39→20:54)
[2018-05-06] MEDS: GABAPENTIN 100 MG CAPSULE PO SCH ×3 (08:40→20:56)
[2018-05-06] MEDS: FEXOFENADINE 60 MG TABLET PO SCH (08:40)
[2018-05-06] MEDS: SENNA + DOCUSATE TABLET PO SCH ×2 (08:40→20:56)
[2018-05-06] MEDS: MULTI-VITAMIN + MINERAL TABLET PO SCH (08:40)
[2018-05-06] MEDS: HYDROCORTISONE 2.5% LOTION 59ml TOP SCH ×2 (08:41→20:57)
[2018-05-06] MEDS: INSULIN ASPART 100unit/ml INJECTION SQ PRN (10:41)
--- NOTE | 2018-05-06 12:04 | IRU Progress Note ---
- Subjective/Serverity of Illness Date: 05/06/18 Mr. Flores was reassessed on the inpatient rehabilitation unit. Patient states that his confidence level is improving and his pain is decreasing. In addition, the patient states that his itching has resolved. In this regard we' ll stop the hydrocortisone lotion. He states that his bowels are moving. His appetite is the same as it always has been. From a therapy standpoint, he is doing well. He is modified independent for many activities. He is able to ambulate over 700 feet with standby assist with a 4 wheeled walker. Exam Vital Signs: Temperature 97.9 F 05/06/18 08:00 Pulse Rate 85 05/06/18 08:00 Respiratory Rate 16 05/06/18 08:00 Blood Pressure 133/67 05/06/18 08:00 Pulse Oximetry 94 05/06/18 08:00 Height/Weight/BMI: Height 1.7 m Weight 80.5 kg Body Mass Index 28.5 - Constitutional Present: no acute distress, well nourished, well developed, cooperative - Routine HEENT Exam Eye: Present: EOMI - Routine Neck Exam Present: supple - Routine Respiratory Exam Present: CTA bilaterally. Absent: wheezes - Routine Cardiovascular Exam Present: RRR, S1, S2. Absent: murmur - Routine Abdominal Exam Present: soft, normoactive bowel sounds, non distended. Absent: tenderness - Routine Extremities Exam Present: no edema - Routine Skin Exam Present: dry, warm - Routine Neurological Exam Present: alert, oriented X3, CN II-XII intact - Routine Psychiatric Exam Present: normal affect, cooperative, good insight, good judgment IRU A/P (1) S/P lumbar spinal fusion Current visit: Yes Status: Acute Clinically the patient remains stable with regard to his recent spinal fusion. He is increasing in his ADL ability as well as transfers and ambulation. 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 Current visit: No Status: Chronic Blood sugars had been improved but her drifting up slightly. (5) Contact dermatitis Qualifiers: Contact dermatitis type: irritant Contact dermatitis trigger: unspecified trigger Qualified Code(s): L24.9 - Irritant contact dermatitis, unspecified cause Current visit: Yes Status: Acute The rational lumbar spine area has clinically resolved. We will discontinue the lotion. Resuscitation Status: Do Not Resuscitate - Course Hospital Course: Kennedy Sesay MD: 05/02/18 14:25 Patient is cooperative with therapy. Blood sugars remain a bit high. Complains of back "spasms" and we will add on gabapentin. 05/03/18 11:17 Continues to progress with therapy. Blood sugars remain in the high 150-200 range. Awaiting results of gabapentin for his back pain. Has a red rash and low back as described. 05/05/18 11:24 Rash significant only improved and lumbar spine. Increase gabapentin. Sugars reviewed. 05/06/18 12:04 He is doing well with regard to therapies and progress. He is having bowel movements. Rash is much improved. Stop hydrocortisone lotion. - Interventions to Obtain Goals PT Treatment Plan: Balance/Proprioception, Functional Activities, Gait Training , Patient/Family Education, Therapeutic Exercise OT Treatment Plan: ADL (Basic Care), Balance Training, IADL, Pt./Family Education, Ther. Exercise for ADL Goals Progress/Modifications: Patient is doing extremely well with regard to therapies. We will discontinue the hydrocortisone lotion as his itching has resolved. He is having bowel movements. It is anticipated the patient will be able to transfer safely to his home environment early next week.
--- NOTE | 2018-05-06 15:22 | Progress Note ---
- Date 05/06/18 Subjective: José Miguel was resting in his room. His back aches at times, but he expected this. He feels like his activity levels are increasing, veronica over the last couple of days. Blood sugars are variable. He denies f/c, chest pain, dyspnea, abd pain, nausea or constipation. Objective Vital signs: Temperature 97.6 F 05/06/18 15:10 Pulse Rate 72 05/06/18 15:10 Respiratory Rate 16 05/06/18 15:10 Blood Pressure 145/67 H 05/06/18 15:10 Pulse Oximetry 98 05/06/18 15:10 Height/Weight/BMI: Height 1.7 m Weight 80.5 kg Body Mass Index 28.5 - Constitutional Present: no acute distress, well nourished, well developed - Routine HEENT Exam Head: Present: normocephalic Eye: Present: PERRL. Absent: conjunctival icterus, scleral injection - Routine Respiratory Exam Present: CTA bilaterally - Routine Cardiovascular Exam Present: RRR, S1, S2, murmur - Routine Abdominal Exam Present: soft - Routine Extremities Exam Present: edema (ble) - Routine Back/Spine/Pelvis Exam Comments: back brace in place - Routine Skin Exam Present: dry, warm - Routine Neurological Exam Present: alert, oriented X3, CN II-XII intact, normal speech - Routine Psychiatric Exam Present: normal affect, normal thought process, cooperative Results - Labs CBC & Chem 7: 05/03/18 04:08 05/03/18 04:08 Assessment and Plan Assessment and Plan: Assessment Status post L4-L5 fusion on 04/26/18 Hyperkalemia, at [facility] Constipation Coronary artery disease. Peripheral artery disease and carotid artery stenosis. History of non-Hodgkin's lymphoma, and mantle cell lymphoma. Hypertension Dyslipidemia. Type 2 diabetes. Stage III chronic kidney disease. BPH Dementia Plan BGM variable - metformin recently increased to 1250 bid. cont to monitor; hope to see further improvements with increased activity. cont amaryl. BP under better control yest/today - cont metoprolol. constipation resolved. GI Prophylaxis: Pepcid Resuscitation Status: Do Not Resuscitate - Physician Narrative Narrative: Date: 05/06/18 Time: 151 Hospital Course Summary Disclaimer: The visit summary below is not to be considered part of the above Progress Note. Hospital Course: 04/29/18 PT and OT orders as well as pain medication per attending. With history of dementia, be cautious with use of narcotics. Recheck chemistry panel tomorrow morning with recent history of hyperkalemia. Would recommend checking CBC due to recent surgery and history of non-Hodgkin's lymphoma. Monitor blood sugars, sliding scale insulin available. Continue metformin and glimepiride. Continue medications for coronary artery disease, hypertension, dyslipidemia, history of GERD and PUD. Continue with bowel regimen. CODE STATUS: DO NOT RESUSCITATE. 05/02/18 Discussed hyperglycemia with patient, daughter, Hussain - increase Metformin to 1250 mg BID. Pt has also decided to cut back on carb servings to match his home carb intake. Increased pain - continue narcotics. This might explain some of the elevation in BP - could also consider increasing metoprolol (HR would tolerate) or starting low-dose amlodipine if BP remains elevated despite additional pain control measures. Cont bowel motivation. 05/06/18 BGM variable - metformin recently increased to 1250 bid. cont to monitor; hope to see further improvements with increased activity. cont amaryl. BP under better control yest/today - cont metoprolol. constipation resolved.
[2018-05-06] MEDS: MELATONIN 1 MG TABLET PO PRN (20:54)
[2018-05-06] MEDS: ASPIRIN 81 MG CHEWABLE TABLET PO SCH (20:54)
[2018-05-06] MEDS: DONEPEZIL 10 MG TABLET PO SCH (20:55)
[2018-05-06] MEDS: APAP/DIPHENHYDRAMINE 500 MG/25 MG TABLET PO PRN (20:55)
[2018-05-06] MEDS: SIMVASTATIN 40 MG TABLET PO SCH (20:56)
[2018-05-07] MEDS: HYDROCODONE/APAP 7.5 MG/325 MG TABLET PO PRN (06:26)
[2018-05-07] MEDS: OMEPRAZOLE 20 MG CAPSULE PO SCH (06:26)
[2018-05-07] MEDS: SUCRALFATE 1 GM TABLET PO SCH ×4 (09:03→21:51)
[2018-05-07] MEDS: METFORMIN 500 MG TABLET PO SCH ×2 (09:03→17:22)
[2018-05-07] MEDS: GLIMEPIRIDE 2 MG TABLET PO SCH ×3 (09:03→17:22)
[2018-05-07] MEDS: MULTI-VITAMIN + MINERAL TABLET PO SCH (09:03)
[2018-05-07] MEDS: CycloSPORINE 0.05% EYE DROPS 4ml EACH EYE SCH ×2 (09:04→21:52)
[2018-05-07] MEDS: GABAPENTIN 100 MG CAPSULE PO SCH ×3 (09:04→21:51)
[2018-05-07] MEDS: CALCIUM 500 + VIT D 200 TABLET PO SCH ×2 (09:04→21:51)
[2018-05-07] MEDS: FERROUS GLUCONATE 324 MG TABLET PO SCH (09:04)
[2018-05-07] MEDS: FEXOFENADINE 60 MG TABLET PO SCH (09:04)
[2018-05-07] MEDS: SENNA + DOCUSATE TABLET PO SCH ×2 (09:05→21:52)
[2018-05-07] MEDS: POLYETHYL GLYCOL 3350 17gm PACKET PO SCH (09:05)
[2018-05-07] MEDS: HYDROCORTISONE 2.5% LOTION 59ml TOP SCH ×2 (09:05→21:49)
[2018-05-07] MEDS: INSULIN ASPART 100unit/ml INJECTION SQ PRN (10:16)
[2018-05-07] MEDS ORDERED: FALL RISK - PHARMACY CONSULT MC ONE (11:27)
[2018-05-07] MEDS: ASPIRIN 81 MG CHEWABLE TABLET PO SCH (21:50)
[2018-05-07] MEDS: DONEPEZIL 10 MG TABLET PO SCH (21:51)
[2018-05-07] MEDS: SIMVASTATIN 40 MG TABLET PO SCH (21:52)
[2018-05-07] MEDS: MELATONIN 1 MG TABLET PO PRN (22:46)
[2018-05-07] MEDS: APAP/DIPHENHYDRAMINE 500 MG/25 MG TABLET PO PRN (22:46)
[2018-05-08] MEDS: OMEPRAZOLE 20 MG CAPSULE PO SCH ×2 (05:22→06:16)
[2018-05-08] MEDS: SENNA + DOCUSATE TABLET PO SCH ×3 (06:55→21:04)
[2018-05-08] MEDS: METFORMIN 500 MG TABLET PO SCH ×2 (09:08→17:39)
[2018-05-08] MEDS: FEXOFENADINE 60 MG TABLET PO SCH (09:08)
[2018-05-08] MEDS: MULTI-VITAMIN + MINERAL TABLET PO SCH (09:09)
[2018-05-08] MEDS: GLIMEPIRIDE 2 MG TABLET PO SCH ×3 (09:09→17:39)
[2018-05-08] MEDS: CycloSPORINE 0.05% EYE DROPS 4ml EACH EYE SCH ×2 (09:09→21:01)
[2018-05-08] MEDS: GABAPENTIN 100 MG CAPSULE PO SCH ×3 (09:09→21:01)
[2018-05-08] MEDS: CALCIUM 500 + VIT D 200 TABLET PO SCH ×2 (09:09→21:01)
[2018-05-08] MEDS: SUCRALFATE 1 GM TABLET PO SCH ×4 (09:09→21:01)
[2018-05-08] MEDS: POLYETHYL GLYCOL 3350 17gm PACKET PO SCH (09:13)
[2018-05-08] MEDS: INSULIN ASPART 100unit/ml INJECTION SQ PRN (10:30)
[2018-05-08] MEDS: FERROUS GLUCONATE 324 MG TABLET PO SCH (10:30)
[2018-05-08] MEDS: HYDROCORTISONE 2.5% LOTION 59ml TOP SCH ×2 (10:30→21:00)
[2018-05-08] MEDS: HYDROCODONE/APAP 7.5 MG/325 MG TABLET PO PRN ×3 (10:33→21:03)
[2018-05-08] MEDS: ASPIRIN 81 MG CHEWABLE TABLET PO SCH (21:00)
[2018-05-08] MEDS: DONEPEZIL 10 MG TABLET PO SCH (21:01)
[2018-05-08] MEDS: SIMVASTATIN 40 MG TABLET PO SCH (21:01)
[2018-05-08] MEDS: MELATONIN 1 MG TABLET PO PRN (21:02)
[2018-05-09] MEDS: HYDROCODONE/APAP 7.5 MG/325 MG TABLET PO PRN ×4 (05:34→20:59)
[2018-05-09] MEDS: OMEPRAZOLE 20 MG CAPSULE PO SCH (05:34)
[2018-05-09] MEDS: CALCIUM 500 + VIT D 200 TABLET PO SCH ×2 (08:55→21:00)
[2018-05-09] MEDS: METFORMIN 500 MG TABLET PO SCH ×2 (08:55→17:10)
[2018-05-09] MEDS: GABAPENTIN 100 MG CAPSULE PO SCH ×3 (08:56→20:59)
[2018-05-09] MEDS: FEXOFENADINE 60 MG TABLET PO SCH (08:56)
[2018-05-09] MEDS: SUCRALFATE 1 GM TABLET PO SCH ×4 (08:56→20:59)
[2018-05-09] MEDS: MULTI-VITAMIN + MINERAL TABLET PO SCH (08:56)
[2018-05-09] MEDS: GLIMEPIRIDE 2 MG TABLET PO SCH ×3 (08:57→17:10)
[2018-05-09] MEDS: POLYETHYL GLYCOL 3350 17gm PACKET PO SCH (08:57)
[2018-05-09] MEDS: CycloSPORINE 0.05% EYE DROPS 4ml EACH EYE SCH ×2 (08:57→21:00)
[2018-05-09] MEDS: SENNA + DOCUSATE TABLET PO SCH ×2 (08:58→21:01)
[2018-05-09] MEDS: FERROUS GLUCONATE 324 MG TABLET PO SCH (08:58)
[2018-05-09] MEDS: HYDROCORTISONE 2.5% LOTION 59ml TOP SCH (08:58)
--- NOTE | 2018-05-09 11:12 | IRU Progress Note ---
- Subjective/Serverity of Illness Date: 05/09/18 Mr. Flores was interviewed and examined in his room on acute inpatient rehabilitation. Medically he is doing well. His blood sugars are controlled. He had one blood sugar 64 however. He was not symptomatic apparently. While the patient was standing with the therapist present we did inspect his buttocks. There is some redness on the buttocks over the issue tuberosities. Additional protective cream was placed on that area. He is scheduled for staple removal today per recommendation of his neurosurgeon. Exam Vital Signs: Temperature 97.6 F 05/09/18 08:00 Pulse Rate 81 05/09/18 08:00 Respiratory Rate 14 05/09/18 08:00 Blood Pressure 163/73 H 05/09/18 08:00 Pulse Oximetry 97 05/09/18 08:00 Height/Weight/BMI: Height 1.7 m Weight 80.5 kg Body Mass Index 28.5 - Constitutional Present: no acute distress, well nourished, well developed, cooperative - Routine HEENT Exam Eye: Present: EOMI ENT: Present: mucous membranes moist, oropharynx clear - Routine Respiratory Exam Present: decreased breath sounds, CTA bilaterally. Absent: wheezes - Routine Cardiovascular Exam Present: RRR, S1, S2. Absent: murmur - Routine Abdominal Exam Present: soft, normoactive bowel sounds, non distended. Absent: tenderness - Routine Extremities Exam Present: no edema, normal capillary refill - Routine Skin Exam Present: dry, warm Comments: Some redness over issue tuberosities without actual skin breakdown. - Routine Neurological Exam Present: alert, oriented X3, CN II-XII intact - Routine Psychiatric Exam Present: normal affect, cooperative, good insight, good judgment IRU A/P (1) S/P lumbar spinal fusion Current visit: Yes Status: Acute His pain appears to be adequately controlled at the present time. He is making good functional progress. (2) Neuropathic pain Current visit: Yes Status: Acute (3) CKD (chronic kidney disease) stage 3, GFR 30-59 ml/min Problem details: Mild Current visit: No Status: Chronic His creatinine has remained stable. 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 Current visit: No Status: Chronic His blood sugars are variable with sugars up in the 200s and at times down to 64. (5) Contact dermatitis Qualifiers: Contact dermatitis type: irritant Contact dermatitis trigger: unspecified trigger Qualified Code(s): L24.9 - Irritant contact dermatitis, unspecified cause Current visit: Yes Status: Resolved Resuscitation Status: Do Not Resuscitate - Course Hospital Course: Kennedy Sesay MD: 05/02/18 14:25 Patient is cooperative with therapy. Blood sugars remain a bit high. Complains of back "spasms" and we will add on gabapentin. 05/03/18 11:17 Continues to progress with therapy. Blood sugars remain in the high 150-200 range. Awaiting results of gabapentin for his back pain. Has a red rash and low back as described. 05/05/18 11:24 Rash significant only improved and lumbar spine. Increase gabapentin. Sugars reviewed. 05/06/18 12:04 He is doing well with regard to therapies and progress. He is having bowel movements. Rash is much improved. Stop hydrocortisone lotion. 05/09/18 11:11 Patient is making good functional progress. Giovana out today. Sugars reviewed and are variable. - Interventions to Obtain Goals PT Treatment Plan: Balance/Proprioception, Functional Activities, Gait Training , Patient/Family Education, Therapeutic Exercise OT Treatment Plan: ADL (Basic Care), Balance Training, IADL, Pt./Family Education, Ther. Exercise for ADL Goals Progress/Modifications: Has a bit of redness on the initial tuberosities. He is tolerating therapy well and is making good progress. His pain is adequately controlled. We will remove giovana today. Additional barrier cream applied to buttock area. Blood sugars are variable with sugars down to the 64 range at times. The patient is stable and we anticipate a safe transition to his home environment tomorrow.
[2018-05-09] MEDS: INSULIN ASPART 100unit/ml INJECTION SQ PRN ×2 (12:01→15:16)
[2018-05-09] MEDS: SIMVASTATIN 40 MG TABLET PO SCH (20:59)
[2018-05-09] MEDS: DONEPEZIL 10 MG TABLET PO SCH (20:59)
[2018-05-09] MEDS: APAP/DIPHENHYDRAMINE 500 MG/25 MG TABLET PO PRN (21:00)
[2018-05-09] MEDS: MELATONIN 1 MG TABLET PO PRN (21:00)
[2018-05-09] MEDS: ASPIRIN 81 MG CHEWABLE TABLET PO SCH (21:03)
[2018-05-10] MEDS: OMEPRAZOLE 20 MG CAPSULE PO SCH (05:50)
[2018-05-10] MEDS: HYDROCODONE/APAP 7.5 MG/325 MG TABLET PO PRN ×2 (05:50→12:55)
[2018-05-10 08:50] VITALS: BP 149/78; PULSE 91; RESP 14; TEMP 97.9; O2SAT 97
[2018-05-10] MEDS: CALCIUM 500 + VIT D 200 TABLET PO SCH (08:50)
[2018-05-10] MEDS: METFORMIN 500 MG TABLET PO SCH (08:50)
[2018-05-10] MEDS: MULTI-VITAMIN + MINERAL TABLET PO SCH (08:50)
[2018-05-10] MEDS: GABAPENTIN 100 MG CAPSULE PO SCH (08:50)
[2018-05-10] MEDS: CycloSPORINE 0.05% EYE DROPS 4ml EACH EYE SCH (08:51)
[2018-05-10] MEDS: GLIMEPIRIDE 2 MG TABLET PO SCH ×2 (08:51→12:54)
[2018-05-10] MEDS: SUCRALFATE 1 GM TABLET PO SCH ×2 (08:51→12:55)
[2018-05-10] MEDS: FEXOFENADINE 60 MG TABLET PO SCH (08:51)
[2018-05-10] MEDS: FERROUS GLUCONATE 324 MG TABLET PO SCH (08:51)
[2018-05-10] MEDS: POLYETHYL GLYCOL 3350 17gm PACKET PO SCH (09:12)
[2018-05-10] MEDS: SENNA + DOCUSATE TABLET PO SCH (09:12)
[2018-05-10] MEDS: INSULIN ASPART 100unit/ml INJECTION SQ PRN (10:19)
--- NOTE | 2018-05-10 11:28 | IRU Progress Note ---
- Subjective/Serverity of Illness Date: 05/10/18 Mr. Flores states that he is anxious to get back home and looking forward to it. He feels confident that he will do well. His pain is adequately controlled. We will provide some medication in this regard (hydrocodone). Mamou were removed yesterday and reportedly the wound looked fine. He is wearing his brace at the present time. Has no further itching in his low back. He is able to ambulate with a front-wheeled walker. Denies any chest pain or shortness of breath. Exam Vital Signs: Temperature 97.9 F 05/10/18 08:00 Pulse Rate 91 05/10/18 08:00 Respiratory Rate 14 05/10/18 08:00 Blood Pressure 149/78 H 05/10/18 08:00 Pulse Oximetry 97 05/10/18 08:00 Height/Weight/BMI: Height 1.7 m Weight 80.2 kg Body Mass Index 28.5 - Constitutional Present: no acute distress, well nourished, well developed, cooperative - Routine HEENT Exam Eye: Present: EOMI - Routine Neck Exam Present: supple - Routine Respiratory Exam Present: CTA bilaterally. Absent: wheezes - Routine Cardiovascular Exam Present: RRR, S1, S2. Absent: murmur - Routine Abdominal Exam Present: soft, normoactive bowel sounds, non distended. Absent: tenderness - Routine Extremities Exam Present: no edema - Routine Back/Spine/Pelvis Exam Back/Spine: Absent: full ROM - Routine Skin Exam Present: dry, warm - Routine Neurological Exam Present: alert, oriented X3, CN II-XII intact - Routine Psychiatric Exam Present: normal affect, cooperative, good insight, good judgment IRU A/P (1) S/P lumbar spinal fusion Current visit: Yes Status: Acute Patient is doing exceptionally well with therapy. He is stable for dismissal to his home. His pain is adequately controlled. (2) Neuropathic pain Current visit: Yes Status: Acute (3) CKD (chronic kidney disease) stage 3, GFR 30-59 ml/min Problem details: Mild Current visit: No Status: Chronic (4) Diabetes mellitus type 2, uncontrolled, without complications Qualifiers: Diabetes mellitus shelter insulin use: without shelter use Qualified Code(s): E11.65 - Type 2 diabetes mellitus with hyperglycemia Problem details: Good control by A1c. Current visit: No Status: Chronic In general his blood sugars are doing well. He is on a low-dose sliding scale which will be discontinued at the time of dismissal. (5) Contact dermatitis Qualifiers: Contact dermatitis type: irritant Contact dermatitis trigger: unspecified trigger Qualified Code(s): L24.9 - Irritant contact dermatitis, unspecified cause Current visit: Yes Status: Resolved Resuscitation Status: Do Not Resuscitate - Course Hospital Course: Kennedy Sesay MD: 05/02/18 14:25 Patient is cooperative with therapy. Blood sugars remain a bit high. Complains of back "spasms" and we will add on gabapentin. 05/03/18 11:17 Continues to progress with therapy. Blood sugars remain in the high 150-200 range. Awaiting results of gabapentin for his back pain. Has a red rash and low back as described. 05/05/18 11:24 Rash significant only improved and lumbar spine. Increase gabapentin. Sugars reviewed. 05/06/18 12:04 He is doing well with regard to therapies and progress. He is having bowel movements. Rash is much improved. Stop hydrocortisone lotion. 05/09/18 11:11 Patient is making good functional progress. Mamou out today. Sugars reviewed and are variable. 05/10/18 11:28 Has done well with therapy. Stable for dismissal today. - Interventions to Obtain Goals PT Treatment Plan: Balance/Proprioception, Functional Activities, Gait Training , Patient/Family Education, Therapeutic Exercise OT Treatment Plan: ADL (Basic Care), Balance Training, IADL, Pt./Family Education, Ther. Exercise for ADL Goals Progress/Modifications: I contacted his physician Dr. Rice and left a message with his nurse that the patient is going home today.
--- NOTE | 2018-05-10 13:37 | IRU Team Meeting ---
IRU Team Meeting - Nursing Bladder Assistive Devices Utilized:: Absorbent Pad Bladder Management Level of Assist: Modified Independent Bladder Frequency of Accidents: No accidents Bowel Assistive Devices Utilized:: Medication Bowel Management Level of Assist: Modified Independent Bowel Frequency of Accidents: No accidents Vital Signs: Vital Signs - 24 hr 05/09/18 15:59 05/09/18 20:38 05/10/18 08:00 Temperature 97.3 F 98.1 F 97.9 F Pulse Rate 61 62 91 Respiratory Rate 14 18 14 Blood Pressure 128/66 133/62 149/78 H Pulse Oximetry 97 98 97 Current Medications: Acetaminophen (Tylenol) 1,000 mg PO Q4HPRN PRN PRN Reason: Pain Last Admin: 05/02/18 13:34 Dose: 1,000 mg Acetaminophen/Diphenhydramine HCl (Tylenol Pm) 1 - 2 tab PO HS PRN PRN Reason: Sleep Last Admin: 05/09/18 21:00 Dose: 1 tab Hydrocodone Bitart/Acetaminophen ([place] 7.5/325) 1 - 2 tab PO Q4HR PRN PRN Reason: Pain Last Admin: 05/10/18 12:55 Dose: 1 tab Aspirin (Asa) 81 mg PO [facility] Last Admin: 05/09/18 21:03 Dose: 81 mg Benzocaine (Cepacol Sore Throat Lozenge) 1 lozenge PO PRN PRN PRN Reason: Sore throat Bisacodyl (Dulcolax) 10 mg RECTALLY DAILY PRN PRN Reason: Constipation Calcium/Vitamin D (Os Sacha-D 500) 1 tab PO BID [facility] Last Admin: 05/10/18 08:50 Dose: 1 tab Cyclobenzaprine HCl (Flexeril) 5 mg PO Q8H PRN PRN Reason: Muscle spasm Last Admin: 05/05/18 20:37 Dose: 5 mg Cyclosporine (Restasis) 2 drop EACH EYE BID [facility] Last Admin: 05/10/18 08:51 Dose: 2 drop Donepezil HCl (Aricept 10 Mg) 10 mg PO [facility] Last Admin: 05/09/18 20:59 Dose: 10 mg Famotidine (Pepcid) 20 mg PO BID PRN PRN Reason: Indigestion Last Admin: 05/05/18 20:37 Dose: 20 mg Ferrous Gluconate (Fergon) 324 mg PO [facility] Last Admin: 05/10/18 08:51 Dose: 324 mg Fexofenadine HCl (Lucinda) 60 mg PO DAILY [facility] Last Admin: 05/10/18 08:51 Dose: 60 mg Gabapentin (Neurontin) 200 mg PO TID [facility] Last Admin: 05/10/18 08:50 Dose: 200 mg Glimepiride (Amaryl) 2 mg PO TIDWM [facility] Last Admin: 05/10/18 12:54 Dose: 2 mg Insulin Aspart (Novolog) 1 - 5 unit SQ SS PRN; Protocol PRN Reason: Hyperglycemia Last Admin: 05/10/18 10:19 Dose: 3 unit Magnesium Hydroxide (Mom) 30 ml PO DAILY PRN PRN Reason: Constipation Last Admin: 05/01/18 12:51 Dose: 30 ml Melatonin (Melatonin) 1 mg PO HS PRN PRN Reason: Sleep Last Admin: 05/09/18 21:00 Dose: 1 mg Metformin HCl (Glucophage) 1,250 mg PO BIDWM [facility] Last Admin: 05/10/18 08:50 Dose: 1,250 mg Metoprolol Tartrate (Lopressor) 50 mg PO [facility] Last Admin: 05/10/18 08:51 Dose: 50 mg Multivitamins/Minerals (Therapeutic - M) 1 tab PO DAILY [facility] Last Admin: 05/10/18 08:50 Dose: 1 tab Nitroglycerin (Nitrostat) 0.4 mg SL Q5M PRN PRN Reason: Chest pain Omeprazole (Prilosec) 20 mg PO ACB [facility] Last Admin: 05/10/18 05:50 Dose: 20 mg Polyethylene Glycol (Miralax) 17 gm PO DAILY [facility] Last Admin: 05/10/18 09:12 Dose: Not Given Senna/Docusate Sodium (Senna Plus Tablet) 2 tab PO BID [facility] Last Admin: 05/10/18 09:12 Dose: Not Given Simvastatin (Zocor) 40 mg PO HS [facility] Last Admin: 05/09/18 20:59 Dose: 40 mg Sucralfate (Carafate) 1 gm PO AC30HS [facility] Last Admin: 05/10/18 12:55 Dose: 1 gm Throat Lozenges (Chloraseptic [place]) 1 spray PO PRN PRN PRN Reason: Sore throat Current Medical Issues: post op back fusion, DM II Comments: I certify that I personally led the interdisciplinary team meeting and agree with comments, barriers and goals indicated. Team meeting was held in the patient's room with the patient and the following family members present: Patient's two daughters Mr. Flores had giovana removed from his low back. Wounds appear to be fine. Pain is adequately controlled. He is trying to cut back on his hydrocodone. Bowels are moving. Blood sugars are reasonably well controlled. - Physical Therapy Bed, Chair, Wheelchair Transfer Assist: Modified Independent Ambulation Ability: Modified Independent Ambulation Distance: 723 Stair Climbing Ability: Stand By Assist/Supervision Number of Steps Climbed: 12 Car Transfer Ability: Modified Independent Comments: Patient has done well with physical therapy having met all of his goals set for him except for his Tinetti balance which was 23 out of 28 with a goal of 24/28. However we consider him safe for dismissal home. - Occupational Therapy Eating Ability: Independent Grooming Ability: Independent Bathing Ability: Modified Independent Upper Body Dressing Ability: Independent Lower Body Dressing Ability: Modified Independent Tub Transfer Assist: Modified Independent Toileting Assist: Modified Independent Toilet Transfer Assist: Modified Independent Comments: He has met all of his occupational therapy goals. Demonstrates good safety awareness with activities and is safe for dismissal. - Goals Physical Therapy Goals: 05/10/18: 1. D/C planning Occupational Therapy Goals: OT goals 05/03/18: 1.) Lower body dressing with modified independence.- goal met. 2.) Toiletig with modified independence.- goal met. 3.) Light meal preparation with modified independence. - goal met. OT goals 05/10/18: 1.) discharge planning - Care Plan Anticipated Length of Stay (days): 0 Anticipated DC Destination: Home, Self Care, Home Health Service I have led this team conference and agree with the plan. Interventions/Goals: Patient's questions were addressed. He is stable for dismissal to his home with home health assistance.
--- NOTE | 2018-05-10 14:47 | Discharge Summary ---
Discharge Information Date of admission: 04/29/18 13:14 Anticipated date of discharge: 05/10/18 Attending Physician: Neo Vitale MD Primary care physician: Easton Rcie MD Consults: 04/29/18 14:19 Physician Consult [CONS] Routine Consulting Provider: [facility] – [place] Hospitalists Reason For Exam: medical evaluation and management Ordering Provider has Notified Proc Tech: No - Discharge Diagnosis (1) S/P lumbar spinal fusion Status: Acute (2) Neuropathic pain Status: Acute (3) CKD (chronic kidney disease) stage 3, GFR 30-59 ml/min Status: Chronic (4) Diabetes mellitus type 2, uncontrolled, without complications Status: Chronic (5) Contact dermatitis Status: Resolved 1. Status post lumbar spinal fusion surgery 2. Neuropathic pain with radiculopathy into the legs 3. Diabetes mellitus type 2 not controlled 4. Contact dermatitis-resolved - Laboratory Labs: 05/09/18 04:32 05/09/18 04:32 History of Present Illness HPI: Mr. Flores as an outpatient had worsening problems with back pain attributed to spinal stenosis and degenerative disc disease with left leg weakness. He underwent L4-L5 transforaminal lumbar interbody fusion, total facetectomy, posterior lateral fusion and bone autograft and placement of bilateral pedicle screws at L4-L5 for spondylolisthesis. His surgeon was Dr. Montero in [place] and date of surgery was 04/26/18. Postoperatively he had constipation as well as elevated potassium. He was stabilized and transferred to acute inpatient rehabilitation on 2017 for a comprehensive multidisciplinary approach to his recovery. Hospital Course This is a general summary of the patient's hospital course. For more details refer to the complete medical record. This very pleasant patient was admitted to inpatient rehabilitation for a multidisciplinary approach to his recovery. His blood sugars were monitored and in general were adequately controlled. He was on a very low dose of sliding insulin scale. He was followed by the hospitalist service as well as Dr. Vitale , medical staff physician. The patient did develop a red itchy rash on his low back area. This is felt to be consistent with a contact dermatitis possibly related to lidocaine patches. These were removed. This was treated with hydrocortisone lotion with benefit and did resolve. Per recommendation of his surgeon, the giovana were removed on 05/09/2018 and the wounds appear to be unremarkable. The following levels of functional competence are to be considered preliminary information. The reader is encouraged to refer to actual therapy notes and reports for specific details. The patient was followed by physical therapy while on acute inpatient rehabilitation. At the conclusion of her stay, the following functional competencies were identified: In the last couple days he has been able to ambulate over 700 feet with a 4 wheeled walker. He does walk in a somewhat crouched/bent over posture. His balance appear to be adequate and he appeared to have good safety awareness. The patient was followed by occupational therapy while on acute inpatient rehabilitation. At the conclusion of her stay, the following functional competencies were identified: He met all goals and was able to perform ADLs at independent to modified independent level of functioning. There was report of chronic kidney disease although here his creatinine was normal at 1.0. His potassium was normal and his hemoglobin was 11.3 upon dismissal. His bowels are moving adequately. He was dismissed back to his apartment at [facility] for independent living. Home health will be involved as well. It is noted that I did give a prescription for hydrocodone 7.5 mg #30 to take 1 every 4 hours as needed for severe pain. Follow-up will be with Dr. Easton Rice locally and Dr. Montero in [place]. Patient asked when he can drive again. I told him that he should not drive until he is not taking the pain medications whatsoever and that he should check with Dr. Rice for an exact date. Hospital course: 04/29/18 PT and OT orders as well as pain medication per attending. With history of dementia, be cautious with use of narcotics. Recheck chemistry panel tomorrow morning with recent history of hyperkalemia. Would recommend checking CBC due to recent surgery and history of non-Hodgkin's lymphoma. Monitor blood sugars, sliding scale insulin available. Continue metformin and glimepiride. Continue medications for coronary artery disease, hypertension, dyslipidemia, history of GERD and PUD. Continue with bowel regimen. CODE STATUS: DO NOT RESUSCITATE. 05/02/18 Discussed hyperglycemia with patient, daughter, Dr. Nixon - increase Metformin to 1250 mg BID. Pt has also decided to cut back on carb servings to match his home carb intake. Increased pain - continue narcotics. This might explain some of the elevation in BP - could also consider increasing metoprolol (HR would tolerate) or starting low-dose amlodipine if BP remains elevated despite additional pain control measures. Cont bowel motivation. 05/06/18 BGM variable - metformin recently increased to 1250 bid. cont to monitor; hope to see further improvements with increased activity. cont amaryl. BP under better control yest/today - cont metoprolol. constipation resolved. Time spent with patient: greater than 35 minutes Resuscitation Status: Do Not Resuscitate Discharge Plan - Med Rec/Dispo Referrals/Follow Up: Carlos West MD [Physician] - (Follow-up with Dr. Carlos West on 06/06/18. Check in at 9:45 am for x-rays and appt. Appt. had been scheduled by your previous Hosp. stay. [facility] [address] [place] [address]) Easton Rice MD [Primary Care Provider] - (Dr. Eliana Rice on 05/18/18 at 1:45 pm for Hosp. follow-up. [address] [place] [address]) Crescencio Instructions: Fall Prevention (DC), Lumbar Spinal Fusion (DC) Prescriptions: New Omeprazole [Prilosec] 20 mg PO ACB cap Ferrous Gluconate [Fergon] 324 mg PO WB #30 tab Senna + Docusate [Senna Plus Tablet] 2 tab PO BID tab Continue Calcium Citrate/Vitamin D2 [Calcium with Vit D Tablet] 1 tab PO BID #0 APAP/Diphenhydramine 500/25 [Tylenol Pm] 1 - 2 tab PO HS PRN PRN Reason: Sleep Simvastatin [Zocor] 40 mg PO HS Melatonin 1 tab PO HS PRN PRN Reason: Sleep Aspirin Chewable [ASA] 81 mg PO HS cycloSPORINE [Restasis Multidose] 2 drop EACH EYE BID Cyclobenzaprine [Flexeril] 5 mg PO Q8H PRN PRN Reason: Muscle Spasm Metoprolol Tartrate 50 mg PO WB Donepezil [Aricept 10 mg] 10 mg PO HS Multivit-Min/Folic/Vit K/Lycop [Men's 50 Plus Daily Formula Tb] 1 tab PO DAILY Sucralfate [Carafate] 1 gm PO AC30HS 30 Days #120 tab Benzocaine/Menthol Lozenge [CEPACOL SORE THROAT Lozenge] 1 each PO PRN PRN PRN Reason: Sore Throat PEG 3350 17gm PACKET [Miralax] 1 packet PO DAILY Milk of Magnesia [Mom] 30 ml PO DAILY PRN PRN Reason: Constipation Famotidine [Pepcid] 1 tab PO BID PRN PRN Reason: Indigestion Bisacodyl Supp [Dulcolax] 10 mg RECTALLY DAILY PRN PRN Reason: Constipation Nitroglycerin [Nitrostat] 0.4 mg SL Q5M PRN #0 PRN Reason: Chest Pain Glimepiride [Amaryl] 2 mg PO TID Phenol/Glycerin [Chloraseptic Max [place]] 1 spray PO PRN PRN PRN Reason: Sore Throat Bisacodyl EC TAB [Dulcolax] 5 - 10 mg PO DAILY PRN PRN Reason: Constipation fexofenadine 180 mg tablet 60 mg PO DAILY tab Glucophage (metformin) 1,000 mg tablet 1,000 mg PO BIDWM #180 tab Changed Acetaminophen [Tylenol] 1,000 mg PO Q8HPRN PRN #0 PRN Reason: Pain Hydrocodone/APAP 7.5/325 [[place] 7.5/325] 1 tab PO Q4HR PRN #30 tab PRN Reason: Pain Discontinued Docusate Sodium [Colace] 1 cap PO BID Lidocaine Patch Removal [Lidoderm Patch Removal] 1 removal TP DAILY Lidocaine 5% Patch [Lidoderm] 1 each TD DAILY Iron 28 mg PO DAILY Omeprazole 1 cap PO DAILY - Disposition 01 Discharged Home, Self-Care - Dismissal Complete Discharge Instructions are:: Complete
--- NOTE | 2018-05-10 14:56 | Letter to Referring Physician ---
Dear Dr. Rice, This is a brief note to bring you up-to-date on the status of José Miguel Flores and his stay on the acute inpatient rehabilitation unit at [facility]. As you are likely aware, this patient was admitted to Dr. Montero in [place] on 04/26/18 for extensive lumbar spinal surgery. The patient was stabilized while on the acute level and admitted to inpatient rehabilitation unit at [facility] on April 29, 2018. While on inpatient rehabilitation, this patient was seen by occupational therapy and physical therapy and improved overall in their functional ability. We also monitored and managed the patient's diabetes mellitus while on Acute Rehab. Please see a copy of the history and physical examination as well as discharge summary faxed separately for further details. He is dismissed back to his independent apartment at [facility] today with home health assistance. His final hemoglobin was 11.3 and his creatinine was 1.0. I did give him a prescription for hydrocodone with acetaminophen 7.5 mg #30 with no refills. Thank you for allowing us to be involved in this nice patient's care. Please contact me directly should you have any questions regarding their stay on the inpatient rehabilitation unit. Sincerely, Neo Vitale M.D.
== END 2018-05-10 13:20 | disposition home health service (06) | DRG 560 ==
PROVIDERS: ADMIT Internal Medicine; ATTEND Internal Medicine